=== PATIENT | male | born 1950 | race Caucasian/White ===

== ENCOUNTER 2019-01-20 15:28 | Inpatient (IN) | payer MEDICARE, OTHER ==
[~2019-01-20] VITALS: Ht 157.5 cm; Wt 56.5 kg
--- NOTE | 2019-01-20 17:16 | ERD ---
ER Documentation Chief Complaint Chief Complaint weakness, vomiting 2 days HPI The patient is a 68-year-old male, presenting to the ER because of vomiting for the last 2 days, generalized weakness. He has not been taking his insulin for the last 4 days, denies fever, chills, neck pain, chest pain, dyspnea, abdominal pain, diarrhea, constipation, dysuria. He does not smoke nor drink Past medical history: Diabetes mellitus Past surgical history: None ROS All systems reviewed and are negative except as per history of present illness. Medications Home Meds Reported Medications Gabapentin* (Gabapentin*) 100 Mg Capsule, 100 MG PO DAILY, #90 CAP 01/20/19 Lisinopril* (Lisinopril*) 10 Mg Tablet, 10 MG PO DAILY, #30 TAB 01/20/19 Glipizide* (Glipizide*) 5 Mg Tablet, 5 MG PO AC BREAKFAST DINNER, TAB 01/20/19 Metformin Hcl* (Metformin Hcl*) 1,000 Mg Tablet, 1000 MG PO WITH BREAKFAST DINNE, #60 TAB 01/20/19 Insulin Human Nph (Novolin-N) 100 Units/Ml Susp, 15 UNITS SQ BID 01/20/19 Allergies Allergies: Coded Allergies: No Known Allergy (Unverified , 01/20/19) PMhx/Soc History of Surgery: No Anesthesia Reaction: No Hx Neurological Disorder: No Hx Respiratory Disorders: No Hx Cardiac Disorders: Yes (HTN) Hx Psychiatric Problems: No Hx Miscellaneous Medical Probl: Yes (DM) Hx Alcohol Use: No Hx Substance Use: No Hx Tobacco Use: No Physical Exam Vitals Vital Signs Date Temp Pulse Resp B/P (MAP) Pulse Ox O2 O2 Flow FiO2 Time Delivery Rate 01/20/19 98.2 124 18 109/58 98 Room Air 18:18 (75) 01/20/19 98.2 113 18 109/58 98 15:48 (75) Physical Exam Const: No acute distress. Head: Atraumatic. Eyes: Normal Conjunctiva. ENT: Normal External Ears, Nose and Mouth. Neck: Full range of motion. No meningismus. Resp: Clear to auscultation bilaterally. Tachypneic Cardio: Regular tachycardic Abd: Soft, non distended, normal bowel sounds, non tender. Skin: No petechiae or rashes. Back: No midline or flank tenderness. Ext: No cyanosis, or edema. Neur: Awake and alert. No focal deficit Psych: Normal Mood and Affect. Result Diagram: 01/20/19 1747 01/20/192039 Results 24 hrs Laboratory Tests Test 01/20/19 15:47 01/20/19 17:15 01/20/19 17:27 01/20/19 17:47 Bedside Glucose 586 mg/dL > 595 mg/dL Blood Gas Blood venous Specimen Source Arterial Blood 01/20/2019 5:46:5 Date Drawn 5 PM Arterial Blood OTHER Gas Puncture Site Naresh Test N/A Venous Blood pH 7.246 Venous Blood 25.8 mmHG pCO2 (Temp Corrected) Venous Blood pO2 72.5 mmHG (Temp Corrected) Venous Blood 11.0 mmol/L HCO3 Venous Blood 93.0 mmHG Oxygen Saturation Venous Blood -14.4 mmol/L Base Excess Venous Blood 16.4 g/dl Total Hemoglobin Venous Blood 91.8 % Oxyhemoglobin Venous Blood 0.3 % Methemoglobin Blood Gas A-a O2 46.3 mmHg Differential Carboxyhemoglobi 1.0 % n Blood Gas 37.0 C Temperature Blood Gas ROOM AIR Modality FiO2 21.0 % Blood Gas ABILSKY R.N. Critical Value Read Back Blood Gas MDA Notified Whom Blood Gas 01/20/2019 5:52:5 Notified Time 9 PM White Blood 14.1 10^3/ul Count Red Blood Count 4.96 10^6/ul Hemoglobin 15.2 g/dl Hematocrit 43.9 % Mean Corpuscular 88.5 fl Volume Mean Corpuscular 30.6 pg Hemoglobin Mean Corpuscular 34.6 g/dl Hemoglobin Doreen nt Red Cell 11.6 % Distribution Width Platelet Count 294 10^3/UL Mean Platelet 10.6 fl Volume Immature 0.400 % Granulocytes % Neutrophils % 92.7 % Lymphocytes % 4.1 % Monocytes % 2.6 % Eosinophils % 0.0 % Basophils % 0.2 % Nucleated Red 0.0 /100WBC Blood Cells % Immature 0.060 10^3/ul Granulocytes # Neutrophils # 13.0 10^3/ul Lymphocytes # 0.6 10^3/ul Monocytes # 0.4 10^3/ul Eosinophils # 0.0 10^3/ul Basophils # 0.0 10^3/ul Nucleated Red 0.0 10^3/ul Blood Cells # Sodium Level 136 mmol/L Potassium Level 6.0 mmol/L Chloride Level 90 mmol/L Carbon Dioxide 10 mmol/L Level Anion Gap 36 Blood Urea 39 mg/dl Nitrogen Creatinine 1.39 mg/dl Est Glomerular 51 mL/min Filtrat Rate mL/min Glucose Level 757 mg/dl Hemoglobin A1c 10.0 % Calcium Level 9.7 mg/dl Phosphorus Level 6.6 mg/dl Magnesium Level 2.5 mg/dl Current Medications Medications Dose Sig/Ritu Start Time Status Last (Trade) Ordered Route PRN Stop Time Admin Dose Reason Admin Sodium 560 ml @ ONCE ONCE 01/20/19 DC 01/20/19 Chloride 560 mls/hr IV 17:30 18:08 01/20/19 18:29 Ondansetron 4 mg ONCE STAT 01/20/19 DC 01/20/19 HCl (Zofran IV 17:36 18:09 Inj) 01/20/19 17:37 Potassium 1,000 ml @ Q0M IV 01/20/19 Chloride/Sodi 0 mls/hr 19:00 um Chloride Potassium 1,000 ml @ Q0M IV 01/20/19 Chloride/Dext 0 mls/hr 19:00 jamie/ Sod Cl Potassium 1,000 ml @ Q0M IV 01/20/19 Chloride/Sodi 0 mls/hr 19:00 um Chloride Potassium 1,000 ml @ Q0M IV 01/20/19 Chloride/Dext 0 mls/hr 19:00 jamie/ Sod Cl Sodium 1,000 ml @ Q0M IV 01/20/19 01/20/19 Chloride 0 mls/hr 19:00 21:23 1,000 ml @ Q0M IV 01/20/19 Dextrose/Sodi 0 mls/hr 19:00 um Chloride Insulin 101 ml @ ER DKA 01/20/19 01/20/19 Human 5.65 mls/hr PROTOCOL IV 19:00 21:28 Regular 100 unit/ Sodium Chloride Lactated 560 ml @ ONCE ONCE 01/20/19 DC 01/20/19 Ringer's 560 mls/hr IV 19:00 19:40 01/20/19 19:59 HYPOGLYCEM 01/20/19 Miscellaneous HYPOGLYCEMIA PROTOCOL PRN 19:00 TREATMENT XX Information .HYPOGLYCEMIA (* PROTOCOL Miscellaneous Pharmacy Order) Dextrose 50 ml Q15M PRN 01/20/19 (D50w IV 19:00 Syringe) .DECREASED GLUCOSE Dextrose 25 ml Q15M PRN 01/20/19 (D50w IV 19:00 Syringe) .DECREASED GLUCOSE Procedures/MDM [place] [id number] Radiology Main Line: [phone] DIAGNOSTIC IMAGING REPORT Patient: SHARI BLACKWELL : 1950 Age: 68 Sex: M MR #: [id number] DOS: 01/20/19 190 Ordering MD: GILBERT MCCLOUD MD Location: E/R Room/Bed: PROCEDURE: XR Chest. CLINICAL INDICATION: Cough TECHNIQUE: Single frontal chest x-ray. COMPARISON: None. FINDINGS: The lungs are clear. No focal opacification is seen. Mildly diminished lung volumes with mild compressive changes. The cardiomediastinal silhouette is unremarkable. Aortic atherosclerotic vascular calcifications. The osseous structures are notable for degenerative enthesopathy of the lower thoracic spine. IMPRESSION: 1. No acute cardiopulmonary process. 2. Scattered benign chronic senescent changes. RPTAT: PP .Edinson Brown MD, MD Date Time Electronically viewed and signed by .Edinson Brown MD, MD on 01/20/2019 20:11 .B/ CC: GILBERT MCCLOUD MD [phone] EKG: Read by emergency physician Rate/Rhythm: Sinus tachycardia 114 beats/min QRS, ST, T-waves: No ST elevation, nonspecific T abnormality Impression: Abnormal EKG MEDICAL MAKING DECISION: The patient is a 68-year-old male, presenting with acute mild DKA, acute kidney injury, acute dehydration, acute hyperphosphatemia, acute hyperkalemia, acute leukocytosis. He was treated with DKA protocol, blood culture urine culture were obtained, he was treated empirically with Rocephin 1 g IV due to acute leukocytosis, Zofran 4 mg IV for nausea The differential diagnoses considered include but are not limited to medical noncompliance, dehydration, HHS, UTI, pneumonia Critical Care: Time: 35 minutes excluding all billable procedures. Treatments/Evaluations: Close monitoring and treatment of unstable vital signs, cardiorespiratory, and neurologic status, while maintaining tight balance of fluid, respiratory, and cardiac interventions. Departure Diagnosis: Primary Impression: DKA (diabetic ketoacidoses) Additional Impressions: CARI (acute kidney injury) Hyperkalemia Dehydration Leukocytosis Hyperphosphatemia Condition: Critical Comments I discussed the findings with the patient. I discussed the patient with Dr Maciel at 7:10 PM , who was made aware of the lab, the treatment, the patient condition. The patient is admitted to ICU Disclaimer: Inadvertent spelling and grammatical errors are likely due to EHR/dictation software use and do not reflect on the overall quality of patient care. Also, please note that the electronic time recorded on this note does not necessarily reflect the actual time of the patient encounter. GILBERT MCCLOUD MD Jan 20, 2019 17:16
[2019-01-20] MEDS ORDERED: SOD CHLORIDE 0.9% 560 ML IV ONE (17:30)
[2019-01-20] MEDS ORDERED: ONDANSETRON 4 MG INJ IV STA (17:36)
[2019-01-20] MEDS ORDERED: METF100010 PO (17:53)
[2019-01-20] MEDS ORDERED: NPH SQ (17:53)
[2019-01-20] MEDS ORDERED: GLIP5TAB13 PO (17:54)
[2019-01-20] MEDS ORDERED: LISI10TA2 PO (17:54)
[2019-01-20] MEDS ORDERED: GABA100C14 PO (17:55)
[2019-01-20] MEDS ORDERED: NS + KCL 40 MEQ 1,000 ML IV SCH (19:00)
[2019-01-20] MEDS ORDERED: LACTATED RINGER S IV ONE (19:00)
[2019-01-20] MEDS ORDERED: D10/0.45% NACL + KCL 40 MEQ 1,000 ML IV SCH (19:00)
[2019-01-20] MEDS ORDERED: D10/0.45% NACL + KCL 30 MEQ 1,000 ML IV SCH (19:00)
[2019-01-20] MEDS ORDERED: DEXTROSE 10%/0.45% NACL 1,000 ML IV SCH (19:00)
[2019-01-20] MEDS ORDERED: DEXTROSE 50% 50 ML SYRINGE IV PRN ×2 (19:00)
[2019-01-20] MEDS ORDERED: CEFTRIAXONE 1 GM/50 ML (PMX) 50 ML IVPB ONE (19:30)
--- NOTE | 2019-01-20 19:45 | HP ---
Date/Time of Note Date/Time of Note DATE: 01/20/19 TIME: 19:45 Assessment/Plan VTE Prophylaxis SCD applied (from Nsg): Yes Pharmacological prophylaxis: NA/contraindicated Pharm contraindication: low risk/ambulating Lines/Catheters IV Catheter Type (from Nrsg): Saline Lock Assessment/Plan Hospital Course This is a 68-year-old male being admitted to the ICU floor for: #1 DKA: Secondary to medication noncompliance/lack of insulin. Patient reports that he did not have his insulin for 4 days due to unable to get it refilled. Continue DKA protocol that was initiated in the ED. Serial labs and ABGs. Insulin GGT. hemoglobin A1c is 10. We will need to titrate patient's home insulin once patient has out of DKA. He takes NPH 15 units twice daily which we are currently holding an oral meds which were currently holding. #2 diabetes mellitus: Hemoglobin A1c of 10. Will need to titrate patient's home insulin regimen. Resume lisinopril once patient's kidney function stabilizes. endocrine consultation. #3 CARI: Likely secondary to dehydration, DKA, OWEN inhibitor effect. Will hydrate the patient. Monitor renal function. Avoid NSAIDs. Resume OWEN inhibitor once patient's kidney function stabilizes. #4 DVT GI prophylaxis: SCDs, H2 roberto Further treatment strategy will be implemented as per the clinical course. Greater than 35 minutes critical care time spent on the care management this patient. Result Diagram: 01/20/19 1747 01/20/19 1747 Results 24hrs Laboratory Tests Test 01/20/19 15:47 01/20/19 17:15 01/20/19 17:27 01/20/19 17:47 Bedside Glucose 586 *H > 595 *H Blood Gas Blood venous Specimen Source Arterial Blood 01/20/2019 5:46: Date Drawn 55 PM Arterial Blood OTHER Gas Puncture Site Naresh Test N/A Venous Blood pH 7.246 L Venous Blood 25.8 L pCO2 (Temp Corrected) Venous Blood pO2 72.5 H (Temp Corrected) Venous Blood 11.0 L HCO3 Venous Blood 93.0 H Oxygen Saturation Venous Blood -14.4 L Base Excess Venous Blood 16.4 Total Hemoglobin Venous Blood 91.8 Oxyhemoglobin Venous Blood 0.3 Methemoglobin Blood Gas A-a O2 46.3 Differential Carboxyhemoglobi 1.0 n Blood Gas 37.0 Temperature Blood Gas ROOM AIR Modality FiO2 21.0 Blood Gas STEVE [place].Jorgito Critical Value Read Back Blood Gas MDA Notified Whom Blood Gas 01/20/2019 5:52: Notified Time 59 PM White Blood 14.1 #H Count Red Blood Count 4.96 Hemoglobin 15.2 Hematocrit 43.9 Mean Corpuscular 88.5 Volume Mean Corpuscular 30.6 Hemoglobin Mean Corpuscular 34.6 Hemoglobin Doreen nt Red Cell 11.6 Distribution Width Platelet Count 294 # Mean Platelet 10.6 H Volume Immature 0.400 Granulocytes % Neutrophils % 92.7 H Lymphocytes % 4.1 L Monocytes % 2.6 Eosinophils % 0.0 Basophils % 0.2 Nucleated Red 0.0 Blood Cells % Immature 0.060 H Granulocytes # Neutrophils # 13.0 H Lymphocytes # 0.6 L Monocytes # 0.4 Eosinophils # 0.0 Basophils # 0.0 Nucleated Red 0.0 Blood Cells # Sodium Level 136 Potassium Level 6.0 H Chloride Level 90 L Carbon Dioxide 10 L Level Anion Gap 36 H Blood Urea 39 H Nitrogen Creatinine 1.39 H Est Glomerular 51 L Filtrat Rate mL/min Glucose Level 757 *H Calcium Level 9.7 Phosphorus Level 6.6 H Magnesium Level 2.5 Test 01/20/19 19:44 Bedside Urine pH 5.0 (LAB) Bedside Urine Negative Protein (LAB) Bedside Urine 0.50% H Glucose (UA) Bedside Urine 4+ H Ketones (LAB) Bedside Urine Trace-intact H Blood Bedside Urine Negative Nitrite (LAB) Bedside Urine Negative Leukocyte Estera se (L HPI/ROS Admit Date/Time Admit Date/Time Hx of Present Illness Chief complaint: Elevated blood sugars, vomiting This is a 68-year-old male who presented to the emergency department as he noticed "high "blood sugars for the last 4 days and had vomiting x2 days. Patient reports that he also had been feeling weak. He ran out of his insulin approximately 4 days ago and was unable to get any refills as his doctor was out of town. He denies any chest pain or cough or fevers or dysuria. Allergies: NKDA Medications: Gabapentin Glipizide NPH 15 units subcu twice daily Lisinopril Metformin ROS Const: As per HPI Eyes : No pain discharge or redness or change in visual acuity ENT: No pain, sore throat, congestion, congestion, dysphagia or discharge Respiratory: No shortness of breath, cough, sputum, wheezing, or pleuritic pain Cardiovascular: No chest pain, palpitation, PND, or edema GI : As per HPI Genitourinary: No dysuria, hematuria, flank pain , discharge or CVA tenderness Musculoskeletal: No joint pain, back pain, neck pain, restricted range of motion in neck or joints Skin: No rash, bruising or hives Neuro: No headache, dizziness, syncope, seizure, focal weakness Endocrine: As per HPI Psych: No hallucination, depression, anxiety or suicidal ideation PMH/Family/Social Past Medical History Diabetes mellitus Medications Current Medications Potassium Chloride/Sodium Chloride 1,000 ml @ 0 mls/hr Q0M IV ; Start 01/20/19 at 19:00 Potassium Chloride/Dextrose/ Sod Cl 1,000 ml @ 0 mls/hr Q0M IV ; Start 01/20/19 at 19:00 Potassium Chloride/Sodium Chloride 1,000 ml @ 0 mls/hr Q0M IV ; Start 01/20/19 at 19:00 Potassium Chloride/Dextrose/ Sod Cl 1,000 ml @ 0 mls/hr Q0M IV ; Start 01/20/19 at 19:00 Sodium Chloride 1,000 ml @ 0 mls/hr Q0M IV ; Start 01/20/19 at 19:00 Dextrose/Sodium Chloride 1,000 ml @ 0 mls/hr Q0M IV ; Start 01/20/19 at 19:00 Insulin Human Regular 100 unit/ Sodium Chloride 101 ml @ 5.65 mls/hr ER DKA PROTOCOL IV ; Start 01/20/19 at 19:00 Lactated Ringer's 560 ml @ 560 mls/hr ONCE ONCE IV ; Start 01/20/19 at 19:00; Stop 01/20/19 at 19:59 Miscellaneous Information (* Miscellaneous Pharmacy Order) HYPOGLYCEMIA TREATMENT HYPOGLYCEM PROTOCOL PRN XX .HYPOGLYCEMIA PROTOCOL; Start 01/20/19 at 19:00 Dextrose (D50w Syringe) 50 ml Q15M PRN IV .DECREASED GLUCOSE; Start 01/20/19 at 19:00 Dextrose (D50w Syringe) 25 ml Q15M PRN IV .DECREASED GLUCOSE; Start 01/20/19 at 19:00 Ceftriaxone Sodium 50 ml @ 100 mls/hr ONCE ONCE IVPB ; Start 01/20/19 at 19:30; Stop 01/20/19 at 19:59 Ondansetron HCl (Zofran Inj) 4 mg Q6H PRN IV NAUSEA AND/OR VOMITING; Start 01/20/19 at 20:00; Status UNV Albuterol (Proventil 0.083% (Neb)) 2.5 mg Q2H RESP THERAPY PRN NEB SHORTNESS OF BREATH; Start 01/20/19 at 20:00; Status UNV Coded Allergies: No Known Allergy (Unverified , 01/20/19) Past Surgical History Hernia repair Family History Significant Family History: no pertinent family hx Social History Alcohol Use: none Smoking Status: Never smoker Drug Use: none Exam/Review of Systems Vital Signs Vitals Vital Signs Date Temp Pulse Resp B/P (MAP) Pulse Ox O2 O2 Flow FiO2 Time Delivery Rate 01/20/19 98.2 124 18 109/58 98 Room Air 18:18 (75) Exam Exam General: Patient is a pleasant male currently lying in bed in no acute distress HEENT: Atraumatic, normocephalic. The pupils are equal, round and reactive. Extraocular motor are intact, dry mucous membranes Neck: Supple with full range of motion. No rigidity or meningismus Chest: Nontender Lungs: Clear to auscultation bilaterally no crackles rales or wheezing Heart: Normal S1-S2, Regular rhythm and rate. No murmur, S3, or S4 Abdomen: Soft , nontender, nondistended , bowel sounds are present. No guarding no rebound tenderness , No masses or organomegaly. No costovertebral temporal angle mass Extremities: Normal to inspection, no edema no cyanosis Neurologic: Normal mental status, speech normal, cranial nerves II through XII are intact, motor and sensory are intact, no focal weakness Additional Comments PROCEDURE: XR Chest. CLINICAL INDICATION: Cough TECHNIQUE: Single frontal chest x-ray. COMPARISON: None. FINDINGS: The lungs are clear. No focal opacification is seen. Mildly diminished lung volumes with mild compressive changes. The cardiomediastinal silhouette is unremarkable. Aortic atherosclerotic vascular calcifications. The osseous structures are notable for degenerative enthesopathy of the lower thoracic spine. IMPRESSION: 1. No acute cardiopulmonary process. 2. Scattered benign chronic senescent changes. RPTAT: PP .Edinson Brown MD, Date Time Electronically viewed and signed by .Edinson Brown MD, on 01/20/2019 20:11 .B/ CC: GILBERT MCCLOUD MD [id number] EKG: Sinus tachycardia 114 bpm, no ST or T wave normalities concerning for acute ischemia MARTHA PULIDO Jan 20, 2019 19:45
[2019-01-20] MEDS ORDERED: DOCUSATE SODIUM 100 MG CAP PO PRN (20:00)
[2019-01-20] MEDS ORDERED: ACETAMINOPHEN 650MG/20.3ML CUP PO PRN (20:00)
[2019-01-20] MEDS ORDERED: IPRATROPIUM (NEB) 0.5 MG/2.5 ML AMP NEB PRN (20:00)
[2019-01-20] MEDS ORDERED: BISACODYL (EC) 5 MG TAB PO PRN (20:00)
[2019-01-20] MEDS ORDERED: HYDROCODONE/APAP (5/325) TAB PO PRN (20:00)
[2019-01-20] MEDS ORDERED: morphine 2 MG INJ IV PRN (20:00)
[2019-01-20] MEDS ORDERED: ALBUTEROL 0.083% (NEB) 2.5 MG/3 ML AMP NEB PRN (20:00)
[2019-01-20 21:05] VITALS: BP 130/94; PULSE 126; RESP 26
[2019-01-20] MEDS: SOD CHLORIDE 0.9% 1,000 ML IV SCH (21:23)
[2019-01-20] MEDS: INSULIN REGULAR, HUMAN 100 UNIT in SOD CHLORIDE 0.9% 100 ML IV SCH ×2 (21:28)
[2019-01-20] MEDS: FAMOTIDINE 20 MG INJ IV SCH (21:37)
[2019-01-20] MEDS: ONDANSETRON 4 MG INJ IV PRN (21:37)
[2019-01-20] MEDS: HEPARIN 5,000 UNIT/1 ML VIAL SC SCH (21:40)
[2019-01-20 22:00] VITALS: BP 105/68; PULSE 114; RESP 21
[2019-01-20 22:24] VITALS: Ht 157.5 cm; Wt 56.5 kg
[2019-01-20 23:00] VITALS: BP 125/70; PULSE 110; RESP 16
[2019-01-21] VITALS (25 sets, daily range): BP systolic 110–153; BP diastolic 59–96; PULSE 70–109; RESP 11–23
[2019-01-21] MEDS: NS + KCL 30 MEQ 1,000 ML IV SCH ×2 (00:22→04:21)
[2019-01-21] MEDS: HEPARIN 5,000 UNIT/1 ML VIAL SC SCH ×3 (06:11→21:31)
[2019-01-21] MEDS: FAMOTIDINE 20 MG INJ IV SCH (08:45)
[2019-01-21] MEDS: SOD CHLORIDE 0.9% 1,000 ML IV SCH (08:45)
--- NOTE | 2019-01-21 08:53 | PN ---
Date/Time of Note Date/Time of Note DATE: 01/21/19 TIME: 08:45 Assessment/Plan VTE Prophylaxis Risk score (from Ns)>0 risk: 2 SCD applied (from [facility]): No SCD contraindicated: other Pharmacological prophylaxis: heparin Lines/Catheters IV Catheter Type (from [facility]): Peripheral IV Urinary Cath still in place: No Assessment/Plan Hospital Course S: Patient had no acute events overnight, anion gap is closed and bicarb levels are normal this morning based on the basic metabolic panel. O: VS - see below PE: Gen: Lying in bed, no acute distress Head: Atraumatic. Eyes: Normal Conjunctiva. ENT: Normal External Ears, Nose and Mouth. Neck: Full range of motion. No meningismus. Resp: Clear to auscultation bilaterally. Tachypneic Cardio: S1, S2 heard Abd: Soft, non distended, normal bowel sounds, non tender. Ext: No bilateral lower extremity edema. Neur: Awake and alert. No focal deficit A/P: 68-year-old male being admitted for: #1 DKA: Resolving now, occurred likely secondary to medication nonco mpliance/lack of insulin. Patient reports that he did not have his insulin for 4 days due to unable to get it refilled. -Based on the numbers today, will switch to subcu insulins and wean off insu monique drip, A1c is 10.0. -Continue IV fluids, replete electrolytes as needed -Consider family living educator and/or endocrinology consult #2 diabetes mellitus: Again, hemoglobin A1c of 10. -See above, resume lisinopril once patient's kidney function stabilizes, again endocrine consultation. #3 CARI: Resolving now, likely secondary to dehydration, DKA, OWEN inhibitor effect. -Continue IV fluids, monitor renal function. Avoid NSAIDs. - Resume OWEN inhibitor once patient's kidney function stabilizes. #4 DVT GI prophylaxis: SCDs, H2 roberto Further treatment strategy will be implemented as per the clinical course. 45 minutes critical care time spent on the care management this patient. Result Diagram: 01/21/19 0254 01/21/19 0657 Results 24hrs Laboratory Tests Test 01/20/19 15:47 01/20/19 17:15 01/20/19 17:27 01/20/19 17:47 Bedside Glucose 586 *H > 595 *H Blood Gas Blood venous Specimen Source Arterial Blood 01/20/2019 5:46: Date Drawn 55 PM Arterial Blood OTHER Gas Puncture Site Naresh Test N/A Venous Blood pH 7.246 L Venous Blood 25.8 L pCO2 (Temp Corrected) Venous Blood pO2 72.5 H (Temp Corrected) Venous Blood 11.0 L HCO3 Venous Blood 93.0 H Oxygen Saturation Venous Blood -14.4 L Base Excess Venous Blood 16.4 Total Hemoglobin Venous Blood 91.8 Oxyhemoglobin Venous Blood 0.3 Methemoglobin Blood Gas A-a O2 46.3 Differential Carboxyhemoglobi 1.0 n Blood Gas 37.0 Temperature Blood Gas ROOM AIR Modality FiO2 21.0 Blood Gas ABILSKY R.N. Critical Value Read Back Blood Gas MDA Notified Whom Blood Gas 01/20/2019 5:52: Notified Time 59 PM White Blood 14.1 #H Count Red Blood Count 4.96 Hemoglobin 15.2 Hematocrit 43.9 Mean Corpuscular 88.5 Volume Mean Corpuscular 30.6 Hemoglobin Mean Corpuscular 34.6 Hemoglobin Doreen nt Red Cell 11.6 Distribution Width Platelet Count 294 # Mean Platelet 10.6 H Volume Immature 0.400 Granulocytes % Neutrophils % 92.7 H Lymphocytes % 4.1 L Monocytes % 2.6 Eosinophils % 0.0 Basophils % 0.2 Nucleated Red 0.0 Blood Cells % Immature 0.060 H Granulocytes # Neutrophils # 13.0 H Lymphocytes # 0.6 L Monocytes # 0.4 Eosinophils # 0.0 Basophils # 0.0 Nucleated Red 0.0 Blood Cells # Sodium Level 136 Potassium Level 6.0 H Chloride Level 90 L Carbon Dioxide 10 L Level Anion Gap 36 H Blood Urea 39 H Nitrogen Creatinine 1.39 H Est Glomerular 51 L Filtrat Rate mL/min Glucose Level 757 *H Hemoglobin A1c 10.0 H Calcium Level 9.7 Phosphorus Level 6.6 H Magnesium Level 2.5 Test 01/20/19 19:33 01/20/19 19:44 01/20/19 20:25 01/20/19 20:40 Urine Color STRAW Urine Clarity CLEAR Urine pH 5.0 Urine Specific 1.022 [place] Urine Ketones 2+ H Urine Nitrite NEGATIVE Urine Bilirubin NEGATIVE Urine NEGATIVE Urobilinogen Urine Leukocyte NEGATIVE Esterase Urine Hemoglobin NEGATIVE Urine Glucose 3+ H Urine Total NEGATIVE Protein Bedside Urine pH 5.0 (LAB) Bedside Urine Negative Protein (LAB) Bedside Urine 0.50% H Glucose (UA) Bedside Urine 4+ H Ketones (LAB) Bedside Urine Trace-intact H Blood Bedside Urine Negative Nitrite (LAB) Bedside Urine Negative Leukocyte Estera se (L Bedside Glucose > 595 *H Sodium Level 140 Potassium Level 6.1 *H Chloride Level 96 L Carbon Dioxide 10 L Level Anion Gap 34 H Blood Urea 38 H Nitrogen Creatinine 1.20 Est Glomerular > 60 Filtrat Rate mL/min Glucose Level 646 *H Calcium Level 9.2 Phosphorus Level 5.5 H Magnesium Level 2.4 Test 01/20/19 21:00 01/20/19 21:10 01/20/19 21:59 01/20/19 23:00 Blood Gas Blood venous Specimen Source Arterial Blood 01/20/2019 9:25: Date Drawn 49 PM Arterial Blood VENOUS LINE Gas Puncture Site Naresh Test N/A Venous Blood pH 7.233 L Venous Blood 25.0 L pCO2 (Temp Corrected) Venous Blood pO2 64.2 H (Temp Corrected) Venous Blood 10.3 L HCO3 Venous Blood 89.0 H Oxygen Saturation Venous Blood -15.3 L Base Excess Venous Blood 15.2 Total Hemoglobin Venous Blood 88.6 Oxyhemoglobin Venous Blood 0.3 Methemoglobin Carboxyhemoglobi 0.1 n Blood Gas 37.0 Temperature Blood Gas ROOM AIR Modality FiO2 21.0 Blood Gas MR Notified Whom Blood Gas 01/20/2019 9:32: Notified Time 15 PM Bedside Glucose 578 *H 567 *H 432 *H Test 01/20/19 23:25 01/21/19 00:14 01/21/19 01:06 01/21/19 02:10 Sodium Level 142 Potassium Level 4.4 Chloride Level 104 Carbon Dioxide 13 L Level Anion Gap 25 #H Blood Urea 35 H Nitrogen Creatinine 1.12 Est Glomerular > 60 Filtrat Rate mL/min Glucose Level 480 #*H Calcium Level 9.5 Phosphorus Level 3.4 # Magnesium Level 2.5 Bedside Glucose 448 *H 338 H 303 H Test 01/21/19 02:54 01/21/19 03:07 01/21/19 04:05 01/21/19 05:03 White Blood 12.9 H Count Red Blood Count 4.54 L Hemoglobin 13.8 L Hematocrit 39.0 L Mean Corpuscular 85.9 Volume Mean Corpuscular 30.4 Hemoglobin Mean Corpuscular 35.4 Hemoglobin Doreen nt Red Cell 11.8 Distribution Width Platelet Count 259 Mean Platelet 10.3 Volume Immature 0.500 H Granulocytes % Neutrophils % 80.5 H Lymphocytes % 9.3 L Monocytes % 9.5 Eosinophils % 0.0 Basophils % 0.2 Nucleated Red 0.0 Blood Cells % Immature 0.060 H Granulocytes # Neutrophils # 10.4 H Lymphocytes # 1.2 Monocytes # 1.2 H Eosinophils # 0.0 Basophils # 0.0 Nucleated Red 0.0 Blood Cells # Sodium Level 147 H Potassium Level 4.9 Chloride Level 112 H Carbon Dioxide 22 Level Anion Gap 13 # Blood Urea 33 H Nitrogen Creatinine 0.86 Est Glomerular > 60 Filtrat Rate mL/min Glucose Level 283 #H Calcium Level 9.2 Phosphorus Level 1.4 #L Magnesium Level 2.5 Triglycerides 127 Level Cholesterol 229 H Level LDL Cholesterol, 160 Calculated HDL Cholesterol 44 Cholesterol/HDL 5.2 Ratio Thyroid 0.776 Stimulating Hormone (TSH) Bedside Glucose 269 H 197 191 Test 01/21/19 06:08 01/21/19 06:57 01/21/19 06:59 01/21/19 08:20 Bedside Glucose 219 232 H 273 H Sodium Level 147 H Potassium Level 4.5 Chloride Level 115 H Carbon Dioxide 25 Level Anion Gap 7 Blood Urea 29 H Nitrogen Creatinine 0.76 Est Glomerular > 60 Filtrat Rate mL/min Glucose Level 275 H Calcium Level 9.1 Phosphorus Level 0.9 L Magnesium Level 2.4 Exam/Review of Systems Exam Vitals Vital Signs Date Temp Pulse Resp B/P (MAP) Pulse Ox O2 O2 Flow FiO2 Time Delivery Rate 01/21/19 96 21 126/81 97 Room Air 06:00 (96) 01/21/19 98.5 04:00 Intake and Output 01/20/19 01/20/19 01/21/19 1515:00 23:00 07:00 IntakeIntake Total 561.2 ml 2094.8 ml OutputOutput Total 600 ml 500 ml BalanceBalance -38.8 ml 1594.8 ml Results Results 24hrs Laboratory Tests Test 01/20/19 15:47 01/20/19 17:15 01/20/19 17:27 01/20/19 17:47 Bedside Glucose 586 *H > 595 *H Blood Gas Blood venous Specimen Source Arterial Blood 01/20/2019 5:46: Date Drawn 55 PM Arterial Blood OTHER Gas Puncture Site Naresh Test N/A Venous Blood pH 7.246 L Venous Blood 25.8 L pCO2 (Temp Corrected) Venous Blood pO2 72.5 H (Temp Corrected) Venous Blood 11.0 L HCO3 Venous Blood 93.0 H Oxygen Saturation Venous Blood -14.4 L Base Excess Venous Blood 16.4 Total Hemoglobin Venous Blood 91.8 Oxyhemoglobin Venous Blood 0.3 Methemoglobin Blood Gas A-a O2 46.3 Differential Carboxyhemoglobi 1.0 n Blood Gas 37.0 Temperature Blood Gas ROOM AIR Modality FiO2 21.0 Blood Gas ABILSKY R.N. Critical Value Read Back Blood Gas MDA Notified Whom Blood Gas 01/20/2019 5:52: Notified Time 59 PM White Blood 14.1 #H Count Red Blood Count 4.96 Hemoglobin 15.2 Hematocrit 43.9 Mean Corpuscular 88.5 Volume Mean Corpuscular 30.6 Hemoglobin Mean Corpuscular 34.6 Hemoglobin Doreen nt Red Cell 11.6 Distribution Width Platelet Count 294 # Mean Platelet 10.6 H Volume Immature 0.400 Granulocytes % Neutrophils % 92.7 H Lymphocytes % 4.1 L Monocytes % 2.6 Eosinophils % 0.0 Basophils % 0.2 Nucleated Red 0.0 Blood Cells % Immature 0.060 H Granulocytes # Neutrophils # 13.0 H Lymphocytes # 0.6 L Monocytes # 0.4 Eosinophils # 0.0 Basophils # 0.0 Nucleated Red 0.0 Blood Cells # Sodium Level 136 Potassium Level 6.0 H Chloride Level 90 L Carbon Dioxide 10 L Level Anion Gap 36 H Blood Urea 39 H Nitrogen Creatinine 1.39 H Est Glomerular 51 L Filtrat Rate mL/min Glucose Level 757 *H Hemoglobin A1c 10.0 H Calcium Level 9.7 Phosphorus Level 6.6 H Magnesium Level 2.5 Test 01/20/19 19:33 01/20/19 19:44 01/20/19 20:25 01/20/19 20:40 Urine Color STRAW Urine Clarity CLEAR Urine pH 5.0 Urine Specific 1.022 [place] Urine Ketones 2+ H Urine Nitrite NEGATIVE Urine Bilirubin NEGATIVE Urine NEGATIVE Urobilinogen Urine Leukocyte NEGATIVE Esterase Urine Hemoglobin NEGATIVE Urine Glucose 3+ H Urine Total NEGATIVE Protein Bedside Urine pH 5.0 (LAB) Bedside Urine Negative Protein (LAB) Bedside Urine 0.50% H Glucose (UA) Bedside Urine 4+ H Ketones (LAB) Bedside Urine Trace-intact H Blood Bedside Urine Negative Nitrite (LAB) Bedside Urine Negative Leukocyte Estera se (L Bedside Glucose > 595 *H Sodium Level 140 Potassium Level 6.1 *H Chloride Level 96 L Carbon Dioxide 10 L Level Anion Gap 34 H Blood Urea 38 H Nitrogen Creatinine 1.20 Est Glomerular > 60 Filtrat Rate mL/min Glucose Level 646 *H Calcium Level 9.2 Phosphorus Level 5.5 H Magnesium Level 2.4 Test 01/20/19 21:00 01/20/19 21:10 01/20/19 21:59 01/20/19 23:00 Blood Gas Blood venous Specimen Source Arterial Blood 01/20/2019 9:25: Date Drawn 49 PM Arterial Blood VENOUS LINE Gas Puncture Site Naresh Test N/A Venous Blood pH 7.233 L Venous Blood 25.0 L pCO2 (Temp Corrected) Venous Blood pO2 64.2 H (Temp Corrected) Venous Blood 10.3 L HCO3 Venous Blood 89.0 H Oxygen Saturation Venous Blood -15.3 L Base Excess Venous Blood 15.2 Total Hemoglobin Venous Blood 88.6 Oxyhemoglobin Venous Blood 0.3 Methemoglobin Carboxyhemoglobi 0.1 n Blood Gas 37.0 Temperature Blood Gas ROOM AIR Modality FiO2 21.0 Blood Gas MR Notified Whom Blood Gas 01/20/2019 9:32: Notified Time 15 PM Bedside Glucose 578 *H 567 *H 432 *H Test 01/20/19 23:25 01/21/19 00:14 01/21/19 01:06 01/21/19 02:10 Sodium Level 142 Potassium Level 4.4 Chloride Level 104 Carbon Dioxide 13 L Level Anion Gap 25 #H Blood Urea 35 H Nitrogen Creatinine 1.12 Est Glomerular > 60 Filtrat Rate mL/min Glucose Level 480 #*H Calcium Level 9.5 Phosphorus Level 3.4 # Magnesium Level 2.5 Bedside Glucose 448 *H 338 H 303 H Test 01/21/19 02:54 01/21/19 03:07 01/21/19 04:05 01/21/19 05:03 White Blood 12.9 H Count Red Blood Count 4.54 L Hemoglobin 13.8 L Hematocrit 39.0 L Mean Corpuscular 85.9 Volume Mean Corpuscular 30.4 Hemoglobin Mean Corpuscular 35.4 Hemoglobin Doreen nt Red Cell 11.8 Distribution Width Platelet Count 259 Mean Platelet 10.3 Volume Immature 0.500 H Granulocytes % Neutrophils % 80.5 H Lymphocytes % 9.3 L Monocytes % 9.5 Eosinophils % 0.0 Basophils % 0.2 Nucleated Red 0.0 Blood Cells % Immature 0.060 H Granulocytes # Neutrophils # 10.4 H Lymphocytes # 1.2 Monocytes # 1.2 H Eosinophils # 0.0 Basophils # 0.0 Nucleated Red 0.0 Blood Cells # Sodium Level 147 H Potassium Level 4.9 Chloride Level 112 H Carbon Dioxide 22 Level Anion Gap 13 # Blood Urea 33 H Nitrogen Creatinine 0.86 Est Glomerular > 60 Filtrat Rate mL/min Glucose Level 283 #H Calcium Level 9.2 Phosphorus Level 1.4 #L Magnesium Level 2.5 Triglycerides 127 Level Cholesterol 229 H Level LDL Cholesterol, 160 Calculated HDL Cholesterol 44 Cholesterol/HDL 5.2 Ratio Thyroid 0.776 Stimulating Hormone (TSH) Bedside Glucose 269 H 197 191 Test 01/21/19 06:08 01/21/19 06:57 01/21/19 06:59 01/21/19 08:20 Bedside Glucose 219 232 H 273 H Sodium Level 147 H Potassium Level 4.5 Chloride Level 115 H Carbon Dioxide 25 Level Anion Gap 7 Blood Urea 29 H Nitrogen Creatinine 0.76 Est Glomerular > 60 Filtrat Rate mL/min Glucose Level 275 H Calcium Level 9.1 Phosphorus Level 0.9 L Magnesium Level 2.4 Medications Medication Current Medications Potassium Chloride/Sodium Chloride 1,000 ml @ 0 mls/hr Q0M IV ; Start 01/20/19 at 19:00 Potassium Chloride/Dextrose/ Sod Cl 1,000 ml @ 0 mls/hr Q0M IV ; Start 01/20/19 at 19:00 Potassium Chloride/Sodium Chloride 1,000 ml @ 0 mls/hr Q0M IV Last administered on 01/21/19at 04:21; Admin Dose 250 MLS/HR; Start 01/20/19 at 19:00 Potassium Chloride/Dextrose/ Sod Cl 1,000 ml @ 0 mls/hr Q0M IV ; Start 01/20/19 at 19:00 Sodium Chloride 1,000 ml @ 0 mls/hr Q0M IV Last administered on 01/20/19at 21:23; Admin Dose 250 MLS/HR; Start 01/20/19 at 19:00 Dextrose/Sodium Chloride 1,000 ml @ 0 mls/hr Q0M IV Last administered on 01/21/19at 05:14; Admin Dose 250 MLS/HR; Start 01/20/19 at 19:00 Insulin Human Regular 100 unit/ Sodium Chloride 101 ml @ 5.65 mls/hr ER DKA PROTOCOL IV Last administered on 01/20/19at 21:28; Admin Dose 5.6 MLS/HR; Start 01/20/19 at 19:00 Miscellaneous Information (* Miscellaneous Pharmacy Order) HYPOGLYCEMIA TREATMENT HYPOGLYCEM PROTOCOL PRN XX .HYPOGLYCEMIA PROTOCOL; Start 01/20/19 at 19:00 Dextrose (D50w Syringe) 50 ml Q15M PRN IV .DECREASED GLUCOSE; Start 01/20/19 at 19:00 Dextrose (D50w Syringe) 25 ml Q15M PRN IV .DECREASED GLUCOSE; Start 01/20/19 at 19:00 Ondansetron HCl (Zofran Inj) 4 mg Q6H PRN IV NAUSEA AND/OR VOMITING Last administered on 01/20/19at 21:37; Admin Dose 4 MG; Start 01/20/19 at 20:00 Albuterol (Proventil 0.083% (Neb)) 2.5 mg Q2H RESP THERAPY PRN NEB SHORTNESS OF BREATH; Start 01/20/19 at 20:00 Ipratropium [place] (Atrovent 0.02% (Neb)) 0.5 mg Q2H RESP THERAPY PRN NEB SHORTNESS OF BREATH; Start 01/20/19 at 20:00 Acetaminophen (Tylenol Liquid) 650 mg Q6H PRN PO PAIN LEVEL 1-3 OR FEVER; Start 01/20/19 at 20:00 Acetaminophen/ Hydrocodone Bitart (Sabael (5/325)) 1 tab Q6H PRN PO PAIN LEVEL 4-6; Start 01/20/19 at 20:00 Morphine Sulfate (morphine) 2 mg Q4H PRN IV PAIN LEVEL 7-10; Start 01/20/19 at 20:00 Docusate Sodium (Colace) 100 mg Q12H PRN PO CONSTIPATION; Start 01/20/19 at 20:00 Bisacodyl (Dulcolax) 5 mg DAILY PRN PO CONSTIPATION; Start 01/20/19 at 20:00 Famotidine (Pepcid Iv) 20 mg DAILY IV Last administered on 01/20/19at 21:37; A dmin Dose 20 MG; Start 01/20/19 at 21:00 Heparin Sodium (Porcine) (Heparin (5000 Units/1ml)) 5,000 unit Q8 SC Last administered on 01/21/19at 06:11; Admin Dose 5,000 UNIT; Start 01/20/19 at 22:00 FANTA BRODERICK Jan 21, 2019 08:53
[2019-01-21] MEDS ORDERED: SOD CHLORIDE 0.45% 1,000 ML IV SCH (09:00)
[2019-01-21] MEDS ORDERED: INSULIN GLARGINE [LANTus] (100 UNITS/ML) SYG SC SCH (10:00)
[2019-01-21] MEDS: [UNRECOGNIZED DRUG - REMARK] XX SCH ×2 (11:00→19:00)
[2019-01-21] MEDS: INSULIN REGULAR, HUMAN 100 UNIT in SOD CHLORIDE 0.9% 100 ML IV SCH ×2 (12:24)
[2019-01-21] MEDS: INSULIN ASPART [NOVOLOG] 3 ML PEN SC SCH ×5 (12:32→21:00)
[2019-01-21] MEDS: SOD CHLORIDE 0.45% 1,000 ML IV SCH ×3 (12:57→22:36)
--- NOTE | 2019-01-21 13:24 | CONS ---
Assessment/Plan Assessment/Plan Problems: (1) DKA (diabetic ketoacidoses) Status: Acute Comment: We will try and determine whether or not there is much pancreatic beta cell function. If the patient has fairly limited beta cell function metformin may not be the perfect choice although it certainly the least expensive choice. Another way of doing this would be the usage of pioglitazone in combination with some of the other medications. The Novolin NPH that he is using his the least expensive and therefore something of the convenient for his budgets. Please note it but it was not a significant straight constraint that would be using glargine insulin with rapid acting insulin at meals Qualifiers: Qualified Codes: E11.10 - Type 2 diabetes mellitus with ketoacidosis without coma (2) CARI (acute kidney injury) Status: Resolved Comment: Resolving with appropriate hydration. (3) Hypertension Status: Chronic Comment: Resume OWEN inhibitor in the morning Qualifiers: Qualified Codes: I10 - Essential (primary) hypertension (4) Hyperlipidemia Status: Chronic Comment: Check cholesterol panel in the morning, continue statin therapy Qualifiers: Qualified Codes: E78.00 - Pure hypercholesterolemia, unspecified (5) H/O umbilical hernia repair Onset Date: ~ 01/2004 Status: Chronic Comment: Noted. Consultation Date/Type/Reason Admit Date/Time January 20, 2019 Date of Consultation: Jan 21, 2019 Type of Consult Endocrine Reason for Consultation 20-year history of diabetes presenting with DKA while on both insulin and oral agents; hypertension on OWEN inhibitor; hyperlipidemia on statin Requesting Provider: FANTA BRODERICK Date/Time of Note DATE: 01/21/19 TIME: 13:17 Hx of Present Illness 68-year-old [place] gentleman with a 20-year history of diabetes. He is on combination oral agents using metformin, secretagogue with twice a day NPH insulin. Although patient is not specifically aware of complications he is under treatment for diabetic peripheral neuropathy. He developed 5 days of GI symptoms with nausea and vomiting which still are going on and pain on swallowing. He developed DKA and was brought into the hospital. 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 with possible complication of peripheral neuropathy), high cholesterol, hypertension Home Meds Reported Medications Gabapentin* (Gabapentin*) 100 Mg Capsule, 100 MG PO DAILY, #90 CAP 01/20/19 Lisinopril* (Lisinopril*) 10 Mg Tablet, 10 MG PO DAILY, #30 TAB 01/20/19 Glipizide* (Glipizide*) 5 Mg Tablet, 5 MG PO AC BREAKFAST DINNER, TAB 01/20/19 Metformin Hcl* (Metformin Hcl*) 1,000 Mg Tablet, 1000 MG PO WITH BREAKFAST DINNE, #60 TAB 01/20/19 Insulin Human Nph (Novolin-N) 100 Units/Ml Susp, 15 UNITS SQ BID 01/20/19 Medications Current Medications Potassium Chloride/Dextrose/ Sod Cl 1,000 ml @ 0 mls/hr Q0M IV ; Start 01/20/19 at 19:00 Potassium Chloride/Dextrose/ Sod Cl 1,000 ml @ 0 mls/hr Q0M IV Last administered on 01/21/19at 10:01; Admin Dose 200 MLS/HR; Start 01/20/19 at 19:00 Sodium Chloride 1,000 ml @ 0 mls/hr Q0M IV Last administered on 01/21/19at 08:45; Admin Dose 50 MLS/HR; Start 01/20/19 at 19:00 Dextrose/Sodium Chloride 1,000 ml @ 0 mls/hr Q0M IV Last administered on 01/21/19at 05:14; Admin Dose 250 MLS/HR; Start 01/20/19 at 19:00 Insulin Human Regular 100 unit/ Sodium Chloride 101 ml @ 5.65 mls/hr ER DKA PROTOCOL IV Last administered on 01/21/19at 12:24; Admin Dose 5.65 MLS/HR; Start 01/20/19 at 19:00 Miscellaneous Information (* Miscellaneous Pharmacy Order) HYPOGLYCEMIA TREATMENT HYPOGLYCEM PROTOCOL PRN XX .HYPOGLYCEMIA PROTOCOL; Start 01/20/19 at 19:00 Dextrose (D50w Syringe) 50 ml Q15M PRN IV .DECREASED GLUCOSE; Start 01/20/19 at 19:00 Dextrose (D50w Syringe) 25 ml Q15M PRN IV .DECREASED GLUCOSE; Start 01/20/19 at 19:00 Ondansetron HCl (Zofran Inj) 4 mg Q6H PRN IV NAUSEA AND/OR VOMITING Last administered on 01/20/19at 21:37; Admin Dose 4 MG; Start 01/20/19 at 20:00 Albuterol (Proventil 0.083% (Neb)) 2.5 mg Q2H RESP THERAPY PRN NEB SHORTNESS OF BREATH; Start 01/20/19 at 20:00 Ipratropium Magn[place] (Atrovent 0.02% (Neb)) 0.5 mg Q2H RESP THERAPY PRN NEB SHORTNESS OF BREATH; Start 01/20/19 at 20:00 Acetaminophen (Tylenol Liquid) 650 mg Q6H PRN PO PAIN LEVEL 1-3 OR FEVER; Start 01/20/19 at 20:00 Acetaminophen/ Hydrocodone Bitart ([place] (5/325)) 1 tab Q6H PRN PO PAIN LEVEL 4-6; Start 01/20/19 at 20:00 Morphine Sulfate (morphine) 2 mg Q4H PRN IV PAIN LEVEL 7-10; Start 01/20/19 at 20:00 Docusate Sodium (Colace) 100 mg Q12H PRN PO CONSTIPATION; Start 01/20/19 at 20:00 Bisacodyl (Dulcolax) 5 mg DAILY PRN PO CONSTIPATION; Start 01/20/19 at 20:00 Famotidine (Pepcid Iv) 20 mg DAILY IV Last administered on 01/21/19at 08:45; Admin Dose 20 MG; Start 01/20/19 at 21:00 Heparin Sodium (Porcine) (Heparin (5000 Units/1ml)) 5,000 unit Q8 SC Last administered on 01/21/19at 06:11; Admin Dose 5,000 UNIT; Start 01/20/19 at 22:00 Diagnostic Test (Pha) (Accu-Chek) 1 ea 02 XX ; Start 01/22/19 at 02:00 Insulin Aspart (Novolog Insulin Pen) 4 unit WITH MEALS SC Last administered on 01/21/19at 12:32; Admin Dose 4 UNIT; Start 01/21/19 at 11:30 Insulin Aspart (Novolog Insulin Pen) NOVOLOG *MILD* ALGORITHM WITH MEALS BEDTIME SC Last administered on 01/21/19at 12:33; Admin Dose 3 UNIT; Start 01/21/19 at 11:30 Insulin Glargine (Lantus) 11 units DAILY@0800 SC Last administered on 01/21/19at 09:39; Admin Dose 11 UNITS; Start 01/21/19 at 10:00 Sodium Chloride 1,000 ml @ 150 mls/hr Q6H40M IV Last administered on 01/21/19at 12:57; Admin Dose 150 MLS/HR; Start 01/21/19 at 13:00 Miscellaneous Information (*Order Clarification Bulletin) MEDICATION REQUIRES CLARIFICATI... Q8H XX ; Start 01/21/19 at 11:00 Insulin Human NPH (Humulin N) 15 unit BID@08,20 SC ; Start 01/21/19 at 20:00; Status UNV Allergies: Coded Allergies: No Known Allergy (Unverified , 01/20/19) Past Surgical History Past Surgical Hx: other (Status post umbilical hernia repair) Family History Significant Family History: diabetes, hypertension Social History Born [facility] and raised. Alcohol Use: none Smoking Status: Never smoker Drug Use: none Exam/Review of Systems Exam Vitals Vital Signs Date Temp Pulse Resp B/P (MAP) Pulse Ox O2 O2 Flow FiO2 Time Delivery Rate 01/21/19 87 08:00 01/21/19 21 126/81 97 Room Air 06:00 (96) 01/21/19 98.5 04:00 Intake and Output 01/20/19 01/20/19 01/21/19 1515:00 23:00 07:00 IntakeIntake Total 561.2 ml 2094.8 ml OutputOutput Total 600 ml 500 ml BalanceBalance -38.8 ml 1594.8 ml Constitutional: alert, oriented Head: normocephalic, atraumatic Respiratory: clear to auscultation, normal air movement Cardiovascular: regular rate and rhythm, nl pulses Gastrointestinal: soft, nl liver, spleen, non-tender Extremities: normal pulses Results Result Diagram: 01/21/19 0254 01/21/19 0657 Results 24hrs Laboratory Tests Test 01/20/19 15:47 01/20/19 17:15 01/20/19 17:27 01/20/19 17:47 Bedside Glucose 586 *H > 595 *H Blood Gas Blood venous Specimen Source Arterial Blood 01/20/2019 5:46: Date Drawn 55 PM Arterial Blood OTHER Gas Puncture Site Naresh Test N/A Venous Blood pH 7.246 L Venous Blood 25.8 L pCO2 (Temp Corrected) Venous Blood pO2 72.5 H (Temp Corrected) Venous Blood 11.0 L HCO3 Venous Blood 93.0 H Oxygen Saturation Venous Blood -14.4 L Base Excess Venous Blood 16.4 Total Hemoglobin Venous Blood 91.8 Oxyhemoglobin Venous Blood 0.3 Methemoglobin Blood Gas A-a O2 46.3 Differential Carboxyhemoglobi 1.0 n Blood Gas 37.0 Temperature Blood Gas ROOM AIR Modality FiO2 21.0 Blood Gas STEVE R.N. Critical Value Read Back Blood Gas MDA Notified Whom Blood Gas 01/20/2019 5:52: Notified Time 59 PM White Blood 14.1 #H Count Red Blood Count 4.96 Hemoglobin 15.2 Hematocrit 43.9 Mean Corpuscular 88.5 Volume Mean Corpuscular 30.6 Hemoglobin Mean Corpuscular 34.6 Hemoglobin Doreen nt Red Cell 11.6 Distribution Width Platelet Count 294 # Mean Platelet 10.6 H Volume Immature 0.400 Granulocytes % Neutrophils % 92.7 H Lymphocytes % 4.1 L Monocytes % 2.6 Eosinophils % 0.0 Basophils % 0.2 Nucleated Red 0.0 Blood Cells % Immature 0.060 H Granulocytes # Neutrophils # 13.0 H Lymphocytes # 0.6 L Monocytes # 0.4 Eosinophils # 0.0 Basophils # 0.0 Nucleated Red 0.0 Blood Cells # Sodium Level 136 Potassium Level 6.0 H Chloride Level 90 L Carbon Dioxide 10 L Level Anion Gap 36 H Blood Urea 39 H Nitrogen Creatinine 1.39 H Est Glomerular 51 L Filtrat Rate mL/min Glucose Level 757 *H Hemoglobin A1c 10.0 H Calcium Level 9.7 Phosphorus Level 6.6 H Magnesium Level 2.5 Test 01/20/19 19:33 01/20/19 19:44 01/20/19 20:25 01/20/19 20:40 Urine Color STRAW Urine Clarity CLEAR Urine pH 5.0 Urine Specific 1.022 [place] Urine Ketones 2+ H Urine Nitrite NEGATIVE Urine Bilirubin NEGATIVE Urine NEGATIVE Urobilinogen Urine Leukocyte NEGATIVE Esterase Urine Hemoglobin NEGATIVE Urine Glucose 3+ H Urine Total NEGATIVE Protein Bedside Urine pH 5.0 (LAB) Bedside Urine Negative Protein (LAB) Bedside Urine 0.50% H Glucose (UA) Bedside Urine 4+ H Ketones (LAB) Bedside Urine Trace-intact H Blood Bedside Urine Negative Nitrite (LAB) Bedside Urine Negative Leukocyte Estera se (L Bedside Glucose > 595 *H Sodium Level 140 Potassium Level 6.1 *H Chloride Level 96 L Carbon Dioxide 10 L Level Anion Gap 34 H Blood Urea 38 H Nitrogen Creatinine 1.20 Est Glomerular > 60 Filtrat Rate mL/min Glucose Level 646 *H Calcium Level 9.2 Phosphorus Level 5.5 H Magnesium Level 2.4 Test 01/20/19 21:00 01/20/19 21:10 01/20/19 21:59 01/20/19 23:00 Blood Gas Blood venous Specimen Source Arterial Blood 01/20/2019 9:25: Date Drawn 49 PM Arterial Blood VENOUS LINE Gas Puncture Site Naresh Test N/A Venous Blood pH 7.233 L Venous Blood 25.0 L pCO2 (Temp Corrected) Venous Blood pO2 64.2 H (Temp Corrected) Venous Blood 10.3 L HCO3 Venous Blood 89.0 H Oxygen Saturation Venous Blood -15.3 L Base Excess Venous Blood 15.2 Total Hemoglobin Venous Blood 88.6 Oxyhemoglobin Venous Blood 0.3 Methemoglobin Carboxyhemoglobi 0.1 n Blood Gas 37.0 Temperature Blood Gas ROOM AIR Modality FiO2 21.0 Blood Gas MR Notified Whom Blood Gas 01/20/2019 9:32: Notified Time 15 PM Bedside Glucose 578 *H 567 *H 432 *H Test 01/20/19 23:25 01/21/19 00:14 01/21/19 01:06 01/21/19 02:10 Sodium Level 142 Potassium Level 4.4 Chloride Level 104 Carbon Dioxide 13 L Level Anion Gap 25 #H Blood Urea 35 H Nitrogen Creatinine 1.12 Est Glomerular > 60 Filtrat Rate mL/min Glucose Level 480 #*H Calcium Level 9.5 Phosphorus Level 3.4 # Magnesium Level 2.5 Bedside Glucose 448 *H 338 H 303 H Test 01/21/19 02:49 01/21/19 02:54 01/21/19 03:07 01/21/19 04:05 Hepatitis B Pending Surface Antigen Hepatitis B Core Pending Total Antibody Hepatitis C Pending Antibody White Blood 12.9 H Count Red Blood Count 4.54 L Hemoglobin 13.8 L Hematocrit 39.0 L Mean Corpuscular 85.9 Volume Mean Corpuscular 30.4 Hemoglobin Mean Corpuscular 35.4 Hemoglobin Doreen nt Red Cell 11.8 Distribution Width Platelet Count 259 Mean Platelet 10.3 Volume Immature 0.500 H Granulocytes % Neutrophils % 80.5 H Lymphocytes % 9.3 L Monocytes % 9.5 Eosinophils % 0.0 Basophils % 0.2 Nucleated Red 0.0 Blood Cells % Immature 0.060 H Granulocytes # Neutrophils # 10.4 H Lymphocytes # 1.2 Monocytes # 1.2 H Eosinophils # 0.0 Basophils # 0.0 Nucleated Red 0.0 Blood Cells # Sodium Level 147 H Potassium Level 4.9 Chloride Level 112 H Carbon Dioxide 22 Level Anion Gap 13 # Blood Urea 33 H Nitrogen Creatinine 0.86 Est Glomerular > 60 Filtrat Rate mL/min Glucose Level 283 #H Calcium Level 9.2 Phosphorus Level 1.4 #L Magnesium Level 2.5 Triglycerides 127 Level Cholesterol 229 H Level LDL Cholesterol, 160 Calculated HDL Cholesterol 44 Cholesterol/HDL 5.2 Ratio Thyroid 0.776 Stimulating Hormone (TSH) Bedside Glucose 269 H 197 Test 01/21/19 05:03 01/21/19 06:08 01/21/19 06:57 01/21/19 06:59 Bedside Glucose 191 219 232 H Sodium Level 147 H Potassium Level 4.5 Chloride Level 115 H Carbon Dioxide 25 Level Anion Gap 7 Blood Urea 29 H Nitrogen Creatinine 0.76 Est Glomerular > 60 Filtrat Rate mL/min Glucose Level 275 H Calcium Level 9.1 Phosphorus Level 0.9 L Magnesium Level 2.4 Test 01/21/19 08:20 01/21/19 08:56 01/21/19 09:59 01/21/19 10:00 Bedside Glucose 273 H 262 H 254 H Urine Color YELLOW Urine Clarity CLEAR Urine pH 5.0 Urine Specific 1.024 [place] Urine Ketones 2+ H Urine Nitrite NEGATIVE Urine Bilirubin NEGATIVE Urine NEGATIVE Urobilinogen Urine Leukocyte NEGATIVE Esterase Urine Hemoglobin NEGATIVE Urine Glucose 3+ H Urine Total NEGATIVE Protein Test 01/21/19 11:07 01/21/19 12:27 Bedside Glucose 271 H 239 H Medications Medication Current Medications Potassium Chloride/Dextrose/ Sod Cl 1,000 ml @ 0 mls/hr Q0M IV ; Start 01/20/19 at 19:00 Potassium Chloride/Dextrose/ Sod Cl 1,000 ml @ 0 mls/hr Q0M IV Last administered on 01/21/19at 10:01; Admin Dose 200 MLS/HR; Start 01/20/19 at 19:00 Sodium Chloride 1,000 ml @ 0 mls/hr Q0M IV Last administered on 01/21/19at 08:45; Admin Dose 50 MLS/HR; Start 01/20/19 at 19:00 Dextrose/Sodium Chloride 1,000 ml @ 0 mls/hr Q0M IV Last administered on 01/21/19at 05:14; Admin Dose 250 MLS/HR; Start 01/20/19 at 19:00 Insulin Human Regular 100 unit/ Sodium Chloride 101 ml @ 5.65 mls/hr ER DKA PROTOCOL IV Last administered on 01/21/19at 12:24; Admin Dose 5.65 MLS/HR; Start 01/20/19 at 19:00 Miscellaneous Information (* Miscellaneous Pharmacy Order) HYPOGLYCEMIA TREATMENT HYPOGLYCEM PROTOCOL PRN XX .HYPOGLYCEMIA PROTOCOL; Start 01/20/19 at 19:00 Dextrose (D50w Syringe) 50 ml Q15M PRN IV .DECREASED GLUCOSE; Start 01/20/19 at 19:00 Dextrose (D50w Syringe) 25 ml Q15M PRN IV .DECREASED GLUCOSE; Start 01/20/19 at 19:00 Ondansetron HCl (Zofran Inj) 4 mg Q6H PRN IV NAUSEA AND/OR VOMITING Last administered on 01/20/19at 21:37; Admin Dose 4 MG; Start 01/20/19 at 20:00 Albuterol (Proventil 0.083% (Neb)) 2.5 mg Q2H RESP THERAPY PRN NEB SHORTNESS OF BREATH; Start 01/20/19 at 20:00 Ipratropium Magn[place] (Atrovent 0.02% (Neb)) 0.5 mg Q2H RESP THERAPY PRN NEB SHORTNESS OF BREATH; Start 01/20/19 at 20:00 Acetaminophen (Tylenol Liquid) 650 mg Q6H PRN PO PAIN LEVEL 1-3 OR FEVER; Start 01/20/19 at 20:00 Acetaminophen/ Hydrocodone Bitart ([place] (5/325)) 1 tab Q6H PRN PO PAIN LEVEL 4-6; Start 01/20/19 at 20:00 Morphine Sulfate (morphine) 2 mg Q4H PRN IV PAIN LEVEL 7-10; Start 01/20/19 at 20:00 Docusate Sodium (Colace) 100 mg Q12H PRN PO CONSTIPATION; Start 01/20/19 at 20:00 Bisacodyl (Dulcolax) 5 mg DAILY PRN PO CONSTIPATION; Start 01/20/19 at 20:00 Famotidine (Pepcid Iv) 20 mg DAILY IV Last administered on 01/21/19at 08:45; Admin Dose 20 MG; Start 01/20/19 at 21:00 Heparin Sodium (Porcine) (Heparin (5000 Units/1ml)) 5,000 unit Q8 SC Last administered on 01/21/19 06:11; Admin Dose 5,000 UNIT; Start 01/20/19 at 22:00 Diagnostic Test (Pha) (Accu-Chek) 1 ea 02 XX ; Start 01/22/19 at 02:00 Insulin Aspart (Novolog Insulin Pen) 4 unit WITH MEALS SC Last administered on 01/21/19 12:32; Admin Dose 4 UNIT; Start 01/21/19 at 11:30 Insulin Aspart (Novolog Insulin Pen) NOVOLOG *MILD* ALGORITHM WITH MEALS BEDTIME SC Last administered on 01/21/19 12:33; Admin Dose 3 UNIT; Start 01/21/19 at 11:30 Insulin Glargine (Lantus) 11 units DAILY@0800 SC Last administered on 01/21/19 09:39; Admin Dose 11 UNITS; Start 01/21/19 at 10:00 Sodium Chloride 1,000 ml @ 150 mls/hr Q6H40M IV Last administered on 01/21/19at 12:57; Admin Dose 150 MLS/HR; Start 01/21/19 at 13:00 Miscellaneous Information (*Order Clarification Bulletin) MEDICATION REQUIRES CLARIFICATI... Q8H XX ; Start 01/21/19 at 11:00 Insulin Human NPH (Humulin N) 15 unit BID@08,20 SC ; Start 01/21/19 at 20:00; Status DUANE MELENDREZ MD Jan 21, 2019 13:24
[2019-01-21] MEDS ORDERED: ACCU-CHEK XX SCH (13:30)
[2019-01-21] MEDS: PIOGLITAZONE 30 MG TAB PO SCH ×2 (13:30→16:52)
[2019-01-21] MEDS: ACCU-CHEK XX SCH ×5 (14:57→21:23)
[2019-01-21] MEDS: NPH, HUMAN INSULIN ISOPHANE 3ML VIAL SC SCH (19:57)
[2019-01-21] MEDS: ONDANSETRON 4 MG INJ IV PRN (21:21)
[2019-01-22 02:00] VITALS: BP 129/60; PULSE 78; RESP 18
[2019-01-22] MEDS: ACCU-CHEK XX SCH ×11 (02:17→21:00)
[2019-01-22] MEDS: [UNRECOGNIZED DRUG - REMARK] XX SCH ×3 (02:17→19:00)
[2019-01-22] MEDS: SOD CHLORIDE 0.45% 1,000 ML IV SCH ×4 (05:44→22:12)
[2019-01-22] MEDS: HEPARIN 5,000 UNIT/1 ML VIAL SC SCH ×3 (05:47→21:51)
[2019-01-22 07:47] VITALS: BP 127/74; PULSE 63; RESP 18
[2019-01-22] MEDS ORDERED: INSULIN GLARGINE [LANTus] (100 UNITS/ML) SYG SC SCH (08:00)
[2019-01-22] MEDS: INSULIN ASPART [NOVOLOG] 3 ML PEN SC SCH ×7 (08:00→21:00)
[2019-01-22] MEDS: FAMOTIDINE 20 MG INJ IV SCH (08:32)
[2019-01-22] MEDS: NPH, HUMAN INSULIN ISOPHANE 3ML VIAL SC SCH ×2 (08:40→21:46)
[2019-01-22] MEDS: PIOGLITAZONE 15 MG TAB PO SCH (10:17)
--- NOTE | 2019-01-22 11:15 | PN ---
Date/Time of Note Date/Time of Note DATE: 01/22/19 TIME: 11:09 Assessment/Plan VTE Prophylaxis Risk score (from Ns)>0 risk: 2 SCD applied (from [facility] [place]): No SCD contraindicated: other Pharmacological prophylaxis: heparin Lines/Catheters IV Catheter Type (from [facility]): Peripheral IV Urinary Cath still in place: No Assessment/Plan Hospital Course Assessment and plan 1. DKA. Appears largely resolved at present. Continue on insulin regimen. [facility] is following. It was reported that patient did not have his insulin for 4 days prior to admission. Medical compliance advised. Patient was seen by clinical systems educator. Continue to monitor. 2. Diabetes. A1c of 10. Continue insulin regimen. Monitor glucose trend. 3. Acute kidney injury. Likely from dehydration. Improved at present. Encourage oral fluid intake 4. Dysphagia. Etiology unknown. Will get speech therapy evaluation. Disposition and plan. Will get ST evaluation for reported dysphagia. Follow-up with environmental health physician recommendations. Discussed POC with Dr. White Result Diagram: 01/22/19 0555 01/21/19 0657 Results 24hrs Laboratory Tests Test 01/21/19 12:27 01/21/19 14:57 01/21/19 16:46 01/21/19 19:53 Bedside Glucose 239 H 132 376 H 77 Test 01/21/19 21:22 01/22/19 02:13 01/22/19 05:55 01/22/19 08:17 Bedside Glucose 94 112 113 White Blood Count 10.5 Red Blood Count 4.20 L Hemoglobin 13.0 L Hematocrit 37.1 L Mean Corpuscular 88.3 Volume Mean Corpuscular 31.0 Hemoglobin Mean Corpuscular 35.0 Hemoglobin Concent Red Cell 11.8 Distribution Width Platelet Count 198 # Mean Platelet Volume 10.3 Immature 0.400 Granulocytes % Neutrophils % 76.3 Lymphocytes % 13.4 L Monocytes % 9.5 Eosinophils % 0.1 Basophils % 0.3 Nucleated Red Blood 0.0 Cells % Immature 0.040 H Granulocytes # Neutrophils # 8.0 H Lymphocytes # 1.4 Monocytes # 1.0 H Eosinophils # 0.0 Basophils # 0.0 Nucleated Red Blood 0.0 Cells # Triglycerides Level 138 Cholesterol Level 169 # LDL Cholesterol, 100 Calculated HDL Cholesterol 41 Cholesterol/HDL 4.1 Ratio Test 01/22/19 10:15 Bedside Glucose 102 Subjective 24 Hr Interval Summary Free Text/Dictation reports difficulty with swallowing Exam/Review of Systems Exam Vitals Vital Signs Date Temp Pulse Resp B/P (MAP) Pulse Ox O2 O2 Flow FiO2 Time Delivery Rate 01/22/19 99.0 63 18 127/74 98 Room Air 07:47 (91) Intake and Output 01/21/19 01/21/19 01/22/19 1515:00 23:00 07:00 IntakeIntake Total 1270 ml 1330 ml 1000 ml OutputOutput Total 600 ml 700 ml 400 ml BalanceBalance 670 ml 630 ml 600 ml Constitutional: alert, oriented Psych: nl mood/affect Head: normocephalic Neck: supple, non-tender Respiratory: clear to auscultation Cardiovascular: regular rate and rhythm Gastrointestinal: soft, non-tender Neurological: CLEANER GREASER II-XII intact, nl mental status, nl speech Skin: nl turgor Results Results 24hrs Laboratory Tests Test 01/21/19 12:27 01/21/19 14:57 01/21/19 16:46 01/21/19 19:53 Bedside Glucose 239 H 132 376 H 77 Test 01/21/19 21:22 01/22/19 02:13 01/22/19 05:55 01/22/19 08:17 Bedside Glucose 94 112 113 White Blood Count 10.5 Red Blood Count 4.20 L Hemoglobin 13.0 L Hematocrit 37.1 L Mean Corpuscular 88.3 Volume Mean Corpuscular 31.0 Hemoglobin Mean Corpuscular 35.0 Hemoglobin Concent Red Cell 11.8 Distribution Width Platelet Count 198 # Mean Platelet Volume 10.3 Immature 0.400 Granulocytes % Neutrophils % 76.3 Lymphocytes % 13.4 L Monocytes % 9.5 Eosinophils % 0.1 Basophils % 0.3 Nucleated Red Blood 0.0 Cells % Immature 0.040 H Granulocytes # Neutrophils # 8.0 H Lymphocytes # 1.4 Monocytes # 1.0 H Eosinophils # 0.0 Basophils # 0.0 Nucleated Red Blood 0.0 Cells # Triglycerides Level 138 Cholesterol Level 169 # LDL Cholesterol, 100 Calculated HDL Cholesterol 41 Cholesterol/HDL 4.1 Ratio Test 01/22/19 10:15 Bedside Glucose 102 Medications Medication Current Medications Potassium Chloride/Dextrose/ Sod Cl 1,000 ml @ 0 mls/hr Q0M IV ; Start 01/20/19 at 19:00 Potassium Chloride/Dextrose/ Sod Cl 1,000 ml @ 0 mls/hr Q0M IV Last administered on 01/21/19at 10:01; Admin Dose 200 MLS/HR; Start 01/20/19 at 19:00 Sodium Chloride 1,000 ml @ 0 mls/hr Q0M IV Last administered on 01/21/19at 08:45; Admin Dose 50 MLS/HR; Start 01/20/19 at 19:00 Dextrose/Sodium Chloride 1,000 ml @ 0 mls/hr Q0M IV Last administered on 01/21/19at 05:14; Admin Dose 250 MLS/HR; Start 01/20/19 at 19:00 Dextrose (D50w Syringe) 50 ml Q15M PRN IV .DECREASED GLUCOSE; Start 01/20/19 at 19:00 Dextrose (D50w Syringe) 25 ml Q15M PRN IV .DECREASED GLUCOSE; Start 01/20/19 at 19:00 Ondansetron HCl (Zofran Inj) 4 mg Q6H PRN IV NAUSEA AND/OR VOMITING Last administered on 01/21/19at 21:21; Admin Dose 4 MG; Start 01/20/19 at 20:00 Albuterol (Proventil 0.083% (Neb)) 2.5 mg Q2H RESP THERAPY PRN NEB SHORTNESS OF BREATH; Start 01/20/19 at 20:00 Ipratropium [place] (Atrovent 0.02% (Neb)) 0.5 mg Q2H RESP THERAPY PRN NEB SHORTNESS OF BREATH; Start 01/20/19 at 20:00 Acetaminophen (Tylenol Liquid) 650 mg Q6H PRN PO PAIN LEVEL 1-3 OR FEVER; Start 01/20/19 at 20:00 Acetaminophen/ Hydrocodone Bitart ([place] (5/325)) 1 tab Q6H PRN PO PAIN LEVEL 4-6; Start 01/20/19 at 20:00 Morphine Sulfate (morphine) 2 mg Q4H PRN IV PAIN LEVEL 7-10; Start 01/20/19 at 20:00 Docusate Sodium (Colace) 100 mg Q12H PRN PO CONSTIPATION; Start 01/20/19 at 20:00 Bisacodyl (Dulcolax) 5 mg DAILY PRN PO CONSTIPATION; Start 01/20/19 at 20:00 Famotidine (Pepcid Iv) 20 mg DAILY IV Last administered on 01/22/19 08:32; Admin Dose 20 MG; Start 01/20/19 at 21:00 Heparin Sodium (Porcine) (Heparin (5000 Units/1ml)) 5,000 unit Q8 SC Last administered on 01/22/19 05:47; Admin Dose 5,000 UNIT; Start 01/20/19 at 22:00 Diagnostic Test (Pha) (Accu-Chek) 1 ea 02 XX Last administered on 01/22/19 02:17; Admin Dose 1 EA; Start 01/22/19 at 02:00 Insulin Aspart (Novolog Insulin Pen) 4 unit WITH MEALS SC Last administered on 01/22/19 08:41; Admin Dose 4 UNIT; Start 01/21/19 at 11:30 Insulin Aspart (Novolog Insulin Pen) NOVOLOG *MILD* ALGORITHM WITH MEALS BEDTIME SC Last administered on 01/21/19 16:54; Admin Dose 7 UNIT; Start at 11:30 Sodium Chloride 1,000 ml @ 150 mls/hr Q6H40M IV Last administered on 01/22/19 05:44; Admin Dose 150 MLS/HR; Start 01/21/19 at 13:00 Miscellaneous Information (*Order Clarification Bulletin) MEDICATION REQUIRES CLARIFICATI... Q8H XX ; Start 01/21/19 at 11:00 Insulin Human NPH (Humulin N) 15 unit BID@08,20 SC Last administered on 01/22/19 08:40; Admin Dose 15 UNIT; Start 01/21/19 at 20:00 Diagnostic Test (Pha) (Accu-Chek) 1 ea AC MEALS XX Last administered on 01/22/19 07:00; Admin Dose 1 EA; Start 01/21/19 at 17:05 Diagnostic Test (Pha) (Accu-Chek) 1 ea AC MEALS AND BEDTIME XX Last administered on 01/22/19 07:00; Admin Dose 1 EA; Start 01/21/19 at 17:05 Diagnostic Test (Pha) (Accu-Chek) 1 ea 2 HOURS AFTER MEALS XX Last administered on 01/22/19 10:16; Admin Dose 1 EA; Start 01/21/19 at 14:30 Pioglitazone HCl (Actos) 30 mg DAILY PO Last administered on 6/20/19at 10:17; Admin Dose 30 MG; Start 01/22/19 at 09:00 SOLEDAD LIU NP Jan 22, 2019 11:15
[2019-01-22 14:15] VITALS: BP 117/64; PULSE 75; RESP 18
--- NOTE | 2019-01-22 18:42 | CONS ---
Assessment/Plan Assessment/Plan Problems: (1) DKA (diabetic ketoacidoses) Status: Acute Comment: The DKA is resolved. His blood sugar control is come to the line nicely. Now the question is what set this off. I am concerned about his biliary tree. Qualifiers: Diabetes mellitus type: type 2 Diabetes mellitus complication detail: without coma Qualified Codes: E11.10 - Type 2 diabetes mellitus with ketoacidosis without coma Consultation Date/Type/Reason Admit Date/Time Jan 20, 2019 at 19:19 Initial Consult Date 01/21/19 Type of Consult Endocrine Reason for Consultation Patient is feeling much better although is still having GI tract and esophageal symptoms. Please note his lipase is negative, see the rest of the work-up Requesting Provider: FANTA BRODERICK Date/Time of Note DATE: 01/22/19 TIME: 18:41 24 HR Interval Summary Constitutional: no complaints Detailed Summary Respiratory: no complaints Cardiovascular: no complaints Gastrointestinal: nausea Exam/Review of Systems Exam Vitals Vital Signs Date Temp Pulse Resp B/P (MAP) Pulse Ox O2 O2 Flow FiO2 Time Delivery Rate 01/22/19 98.1 75 18 117/64 97 Room Air 14:15 (81) Intake and Output 01/21/19 01/21/19 01/22/19 1515:00 23:00 07:00 IntakeIntake Total 1270 ml 1330 ml 1000 ml OutputOutput Total 600 ml 700 ml 400 ml BalanceBalance 670 ml 630 ml 600 ml Constitutional: alert, oriented Respiratory: clear to auscultation, normal air movement Cardiovascular: regular rate and rhythm, nl pulses Gastrointestinal: soft, nl liver, spleen, non-tender Results Result Diagram: 01/22/19 0555 01/21/19 0657 Results 24hrs Laboratory Tests Test 01/21/19 19:53 01/21/19 21:22 01/22/19 02:13 01/22/19 05:55 Bedside Glucose 77 94 112 White Blood Count 10.5 Red Blood Count 4.20 L Hemoglobin 13.0 L Hematocrit 37.1 L Mean Corpuscular 88.3 Volume Mean Corpuscular 31.0 Hemoglobin Mean Corpuscular 35.0 Hemoglobin Concent Red Cell 11.8 Distribution Width Platelet Count 198 # Mean Platelet Volume 10.3 Immature 0.400 Granulocytes % Neutrophils % 76.3 Lymphocytes % 13.4 L Monocytes % 9.5 Eosinophils % 0.1 Basophils % 0.3 Nucleated Red Blood 0.0 Cells % Immature 0.040 H Granulocytes # Neutrophils # 8.0 H Lymphocytes # 1.4 Monocytes # 1.0 H Eosinophils # 0.0 Basophils # 0.0 Nucleated Red Blood 0.0 Cells # Triglycerides Level 138 Cholesterol Level 169 # LDL Cholesterol, 100 Calculated HDL Cholesterol 41 Cholesterol/HDL 4.1 Ratio Test 01/22/19 08:17 01/22/19 10:15 01/22/19 12:53 01/22/19 14:40 Bedside Glucose 113 102 84 173 Test 01/22/19 17:29 Bedside Glucose 190 Medications Medication Current Medications Sodium Chloride 1,000 ml @ 0 mls/hr Q0M IV Last administered on 01/21/19at 08:45; Admin Dose 50 MLS/HR; Start 01/20/19 at 19:00 Dextrose (D50w Syringe) 50 ml Q15M PRN IV .DECREASED GLUCOSE; Start 01/20/19 at 19:00 Dextrose (D50w Syringe) 25 ml Q15M PRN IV .DECREASED GLUCOSE; Start 01/20/19 at 19:00 Ondansetron HCl (Zofran Inj) 4 mg Q6H PRN IV NAUSEA AND/OR VOMITING Last administered on 01/21/19at 21:21; Admin Dose 4 MG; Start 01/20/19 at 20:00 Albuterol (Proventil 0.083% (Neb)) 2.5 mg Q2H RESP THERAPY PRN NEB SHORTNESS OF BREATH; Start 01/20/19 at 20:00 Ipratropium [place] (Atrovent 0.02% (Neb)) 0.5 mg Q2H RESP THERAPY PRN NEB SHORTNESS OF BREATH; Start 01/20/19 at 20:00 Acetaminophen (Tylenol Liquid) 650 mg Q6H PRN PO PAIN LEVEL 1-3 OR FEVER; Start 01/20/19 at 20:00 Acetaminophen/ Hydrocodone Bitart ([place] (5/325)) 1 tab Q6H PRN PO PAIN LEVEL 4-6; Start 01/20/19 at 20:00 Morphine Sulfate (morphine) 2 mg Q4H PRN IV PAIN LEVEL 7-10; Start 01/20/19 at 20:00 Docusate Sodium (Colace) 100 mg Q12H PRN PO CONSTIPATION; Start 01/20/19 at 20:00 Bisacodyl (Dulcolax) 5 mg DAILY PRN PO CONSTIPATION; Start 01/20/19 at 20:00 Heparin Sodium (Porcine) (Heparin (5000 Units/1ml)) 5,000 unit Q8 SC Last administered on 01/22/19at 14:36; Admin Dose 5,000 UNIT; Start 01/20/19 at 22:00 Diagnostic Test (Pha) (Accu-Chek) 1 ea 02 XX Last administered on 01/22/19at 02:17; Admin Dose 1 EA; Start 01/22/19 at 02:00 Insulin Aspart (Novolog Insulin Pen) 4 unit WITH MEALS SC Last administered on 01/22/19 17:35; Admin Dose 4 UNIT; Start 01/21/19 at 11:30 Insulin Aspart (Novolog Insulin Pen) NOVOLOG *MILD* ALGORITHM WITH MEALS BEDTIME SC Last administered on 01/22/19 17:39; Admin Dose 2 UNIT; Start 01/21/19 at 11:30 Sodium Chloride 1,000 ml @ 150 mls/hr Q6H40M IV Last administered on 01/22/19 14:31; Admin Dose 150 MLS/HR; Start 01/21/19 at 13:00 Miscellaneous Information (*Order Clarification Bulletin) MEDICATION REQUIRES CLARIFICATI... Q8H XX ; Start 01/21/19 at 11:00 Insulin Human NPH (Humulin N) 15 unit BID@08,20 SC Last administered on 01/22/19 08:40; Admin Dose 15 UNIT; Start 01/21/19 at 20:00 Diagnostic Test (Pha) (Accu-Chek) 1 ea AC MEALS AND BEDTIME XX Last administered on 01/22/19 17:31; Admin Dose 1 EA; Start 01/21/19 at 17:05 Diagnostic Test (Pha) (Accu-Chek) 1 ea 2 HOURS AFTER MEALS XX Last administered on 01/22/19 14:38; Admin Dose 1 EA; Start 01/21/19 at 14:30 Pioglitazone HCl (Actos) 30 mg DAILY PO Last administered on 01/22/19at 10:17; Admin Dose 30 MG; Start 01/22/19 at 09:00 Famotidine (Pepcid) 20 mg DAILY PO ; Start 01/23/19 at 09:00 DUANE LEWIS MD Jan 22, 2019 18:42
[2019-01-22 20:00] VITALS: BP 123/73; PULSE 68; RESP 18
[2019-01-23] MEDS: ACCU-CHEK XX SCH ×6 (01:32→17:10)
[2019-01-23 02:00] VITALS: BP 128/70; PULSE 73; RESP 18
[2019-01-23] MEDS: [UNRECOGNIZED DRUG - REMARK] XX SCH ×3 (02:01→19:00)
[2019-01-23] MEDS: SOD CHLORIDE 0.45% 1,000 ML IV SCH ×3 (05:00→13:18)
[2019-01-23] MEDS: HEPARIN 5,000 UNIT/1 ML VIAL SC SCH ×2 (05:02→14:33)
--- NOTE | 2019-01-23 07:41 | RADRPT ---
Vent Rate: 75 bpm RR Interval: 796 msec [place] Interval: 141 msec QRS Duration: 73 msec QT Interval: 477 msec QTC Interval: 535 msec P-R-T [place]: 16 - 45 - -88 degrees Sinus rhythm...normal P axis, V-rate 50- [address]/T abnormalities, diffuse leads Consider anterior ischemia Prolonged QT interval...QTc >500mS Electronically Signed By: Te Taylor
[2019-01-23] MEDS: NPH, HUMAN INSULIN ISOPHANE 3ML VIAL SC SCH ×2 (08:00→11:02)
[2019-01-23] MEDS: INSULIN ASPART [NOVOLOG] 3 ML PEN SC SCH ×5 (08:00→17:09)
[2019-01-23 08:01] VITALS: BP 134/78; PULSE 60; RESP 18
[2019-01-23] MEDS ORDERED: FAMOTIDINE 20 MG TAB PO SCH (09:00)
[2019-01-23] MEDS: PIOGLITAZONE 15 MG TAB PO SCH (10:59)
--- NOTE | 2019-01-23 12:17 | PN ---
Date/Time of Note Date/Time of Note DATE: 01/23/19 TIME: 12:14 Assessment/Plan VTE Prophylaxis Risk score (from Ns)>0 risk: 2 SCD applied (from Ns): No SCD contraindicated: other Lines/Catheters IV C[facility]ter Type (from [facility]): Peripheral IV Urinary Cath still in place: No Assessment/Plan Hospital Course Assessment and plan 1. DKA. - Appears largely resolved at present. . - Continue on insulin regimen. - Grid Casting Machine Operator Helper is following. It was reported that patient did not have his insulin for 4 days prior to admission. - Medical compliance advised. - Patient was seen by special education paraeducator. Continue to monitor. 2. Diabetes. - A1c of 10. Continue insulin regimen. Monitor glucose trend. 3. Acute kidney injury. - Likely from dehydration. - Improved at present. Encourage oral fluid intake 4. Dysphagia. - Seen by speech therapy - likely from GERD - improved Disposition and plan. HIDA scan was ordered per dusting and brushing machine operator. Follow-up with recommendations. Anticipate discharge within the next 24 hours if medically stable and cleared by consults Discussed POC with Dr. White Result Diagram: 01/23/19 0503 01/21/19 0657 Results 24hrs Laboratory Tests Test 01/22/19 12:53 01/22/19 14:40 01/22/19 17:29 01/22/19 21:42 Bedside Glucose 84 173 190 157 Test 01/23/19 05:03 01/23/19 08:16 01/23/19 10:57 White Blood Count 6.0 # Red Blood Count 4.08 L Hemoglobin 12.4 L Hematocrit 35.5 L Mean Corpuscular 87.0 Volume Mean Corpuscular 30.4 Hemoglobin Mean Corpuscular 34.9 Hemoglobin Concent Red Cell 11.2 L Distribution Width Platelet Count 157 # Mean Platelet Volume 10.0 Immature 0.300 Granulocytes % Neutrophils % 56.8 Lymphocytes % 30.8 Monocytes % 10.4 Eosinophils % 1.2 Basophils % 0.5 Nucleated Red Blood 0.0 Cells % Immature 0.020 Granulocytes # Neutrophils # 3.4 Lymphocytes # 1.9 Monocytes # 0.6 Eosinophils # 0.1 Basophils # 0.0 Nucleated Red Blood 0.0 Cells # Bedside Glucose 106 154 Subjective 24 Hr Interval Summary Free Text/Dictation reports only minimal abd pain at this time. seen eating lunch and tolerating well Exam/Review of Systems Exam Vitals Vital Signs Date Temp Pulse Resp B/P (MAP) Pulse Ox O2 O2 Flow FiO2 Time Delivery Rate 01/23/19 98.8 60 18 134/78 98 08:01 (96) 01/23/19 Room Air 02:00 Intake and Output 01/22/19 01/22/19 01/23/19 1515:00 23:00 07:00 IntakeIntake Total 1600 ml 1360 ml 1000 ml BalanceBalance 1600 ml 1360 ml 1000 ml Exam Constitutional: alert, oriented Psych: nl mood/affect Head: normocephalic Neck: supple, non-tender Respiratory: clear to auscultation Cardiovascular: regular rate and rhythm Gastrointestinal: soft, non-tender Neurological: OFFAL SEPARATOR II-XII intact, nl mental status, nl speech Skin: nl turgor Results Results 24hrs Laboratory Tests Test 01/22/19 12:53 01/22/19 14:40 01/22/19 17:29 01/22/19 21:42 Bedside Glucose 84 173 190 157 Test 01/23/19 05:03 01/23/19 08:16 01/23/19 10:57 White Blood Count 6.0 # Red Blood Count 4.08 L Hemoglobin 12.4 L Hematocrit 35.5 L Mean Corpuscular 87.0 Volume Mean Corpuscular 30.4 Hemoglobin Mean Corpuscular 34.9 Hemoglobin Concent Red Cell 11.2 L Distribution Width Platelet Count 157 # Mean Platelet Volume 10.0 Immature 0.300 Granulocytes % Neutrophils % 56.8 Lymphocytes % 30.8 Monocytes % 10.4 Eosinophils % 1.2 Basophils % 0.5 Nucleated Red Blood 0.0 Cells % Immature 0.020 Granulocytes # Neutrophils # 3.4 Lymphocytes # 1.9 Monocytes # 0.6 Eosinophils # 0.1 Basophils # 0.0 Nucleated Red Blood 0.0 Cells # Bedside Glucose 106 154 Medications Medication Current Medications Sodium Chloride 1,000 ml @ 0 mls/hr Q0M IV Last administered on 01/21/19at 08:45; Admin Dose 50 MLS/HR; Start 01/20/19 at 19:00 Dextrose (D50w Syringe) 50 ml Q15M PRN IV .DECREASED GLUCOSE; Start 01/20/19 at 19:00 Dextrose (D50w Syringe) 25 ml Q15M PRN IV .DECREASED GLUCOSE; Start 01/20/19 at 19:00 Ondansetron HCl (Zofran Inj) 4 mg Q6H PRN IV NAUSEA AND/OR VOMITING Last administered on 01/21/19at 21:21; Admin Dose 4 MG; Start 01/20/19 at 20:00 Albuterol (Proventil 0.083% (Neb)) 2.5 mg Q2H RESP THERAPY PRN NEB SHORTNESS OF BREATH; Start 01/20/19 at 20:00 Ipratropium [place] (Atrovent 0.02% (Neb)) 0.5 mg Q2H RESP THERAPY PRN NEB SHORTNESS OF BREATH; Start 01/20/19 at 20:00 Acetaminophen (Tylenol Liquid) 650 mg Q6H PRN PO PAIN LEVEL 1-3 OR FEVER; Start 01/20/19 at 20:00 Acetaminophen/ Hydrocodone Bitart ([place] (5/325)) 1 tab Q6H PRN PO PAIN LEVEL 4-6; Start 01/20/19 at 20:00 Morphine Sulfate (morphine) 2 mg Q4H PRN IV PAIN LEVEL 7-10; Start 01/20/19 at 20:00 Docusate Sodium (Colace) 100 mg Q12H PRN PO CONSTIPATION; Start 01/20/19 at 20:00 Bisacodyl (Dulcolax) 5 mg DAILY PRN PO CONSTIPATION; Start 01/20/19 at 20:00 Heparin Sodium (Porcine) (Heparin (5000 Units/1ml)) 5,000 unit Q8 SC Last administered on 01/23/19at 05:02; Admin Dose 5,000 UNIT; Start 01/20/19 at 22:00 Diagnostic Test (Pha) (Accu-Chek) 1 ea 02 XX Last administered on 01/22/19at 02:17; Admin Dose 1 EA; Start 01/22/19 at 02:00 Insulin Aspart (Novolog Insulin Pen) 4 unit WITH MEALS SC Last administered on 01/23/19at 11:03; Admin Dose 4 UNIT; Start 01/21/19 at 11:30 Insulin Aspart (Novolog Insulin Pen) NOVOLOG *MILD* ALGORITHM WITH MEALS BEDTIME SC Last administered on 01/23/19at 11:05; Admin Dose 1 UNIT; Start 01/21/19 at 11:30 Sodium Chloride 1,000 ml @ 150 mls/hr Q6H40M IV Last administered on 01/23/19 05:00; Admin Dose 150 MLS/HR; Start 01/21/19 at 13:00 Miscellaneous Information (*Order Clarification Bulletin) MEDICATION REQUIRES CLARIFICATI... Q8H XX ; Start 01/21/19 at 11:00 Insulin Human NPH (Humulin N) 15 unit BID@08,20 SC Last administered on 01/23/19 11:02; Admin Dose 15 UNIT; Start 01/21/19 at 20:00 Diagnostic Test (Pha) (Accu-Chek) 1 ea AC MEALS AND BEDTIME XX Last administered on 01/22/19at 17:31; Admin Dose 1 EA; Start 01/21/19 at 17:05 Diagnostic Test (Pha) (Accu-Chek) 1 ea 2 HOURS AFTER MEALS XX Last administered on 01/22/19at 14:38; Admin Dose 1 EA; Start 01/21/19 at 14:30 Pioglitazone HCl (Actos) 30 mg DAILY PO Last administered on 01/23/19at 10:59; Admin Dose 30 MG; Start 01/22/19 at 09:00 Famotidine (Pepcid) 20 mg DAILY PO Last administered on 01/23/19at 10:59; Admin Dose 20 MG; Start 01/23/19 at 09:00 SOLEDAD LIU NP Jan 23, 2019 12:17
[2019-01-23 15:22] VITALS: BP 128/74; PULSE 75; RESP 17
--- NOTE | 2019-01-23 16:25 | CONS ---
Assessment/Plan Assessment/Plan Problems: (1) DKA (diabetic ketoacidoses) Status: Acute Comment: Resolved and blood sugars under much better control. Would actively consider discharge using the pioglitazone as an adjunct to his insulin as opposed to the metformin. If need be the metformin can be used but would recommend at low dosage Qualifiers: Diabetes mellitus type: type 2 Diabetes mellitus complication detail: without coma Qualified Codes: E11.10 - Type 2 diabetes mellitus with ketoacidosis without coma (2) Hyperlipidemia Status: Chronic Comment: Stable on treatment Qualifiers: Hyperlipidemia type: pure hypercholesterolemia Qualified Codes: E78.00 - Pure hypercholesterolemia, unspecified (3) Hypertension Status: Chronic Comment: Adequate control Qualifiers: Hypertension type: essential hypertension Qualified Codes: I10 - Essential (primary) hypertension (4) Gallbladder sludge Status: Chronic Comment: Noted. He has a negative HIDA scan CC: SOLEDAD LIU RECREATION FACILITY ATTENDANT ; Consultation Date/Type/Reason Admit Date/Time Jan 20, 2019 at 19:19 Initial Consult Date 01/21/19 Type of Consult Endocrine Reason for Consultation Diabetes mellitus with DKA caused by unknown stress or Requesting Provider: FANTA BRODERICK Date/Time of Note DATE: 01/23/19 TIME: 16:23 24 HR Interval Summary Free Text/Dictation No complaints Constitutional: no complaints Detailed Summary Endocrine: no complaints Exam/Review of Systems Exam Vitals Vital Signs Date Temp Pulse Resp B/P (MAP) Pulse Ox O2 O2 Flow FiO2 Time Delivery Rate 01/23/19 98.5 75 17 128/74 96 15:22 (92) 01/23/19 Room Air 02:00 Intake and Output 01/22/19 01/22/19 01/23/19 1515:00 23:00 07:00 IntakeIntake Total 1600 ml 1360 ml 1000 ml BalanceBalance 1600 ml 1360 ml 1000 ml Constitutional: alert, oriented Neck: supple, non-tender Respiratory: clear to auscultation, normal air movement Cardiovascular: regular rate and rhythm, nl pulses Results Result Diagram: 01/23/19 0503 01/21/19 0657 Results 24hrs Laboratory Tests Test 01/22/19 17:29 01/22/19 21:42 01/23/19 05:03 01/23/19 08:16 Bedside Glucose 190 157 106 White Blood Count 6.0 # Red Blood Count 4.08 L Hemoglobin 12.4 L Hematocrit 35.5 L Mean Corpuscular 87.0 Volume Mean Corpuscular 30.4 Hemoglobin Mean Corpuscular 34.9 Hemoglobin Concent Red Cell 11.2 L Distribution Width Platelet Count 157 # Mean Platelet Volume 10.0 Immature 0.300 Granulocytes % Neutrophils % 56.8 Lymphocytes % 30.8 Monocytes % 10.4 Eosinophils % 1.2 Basophils % 0.5 Nucleated Red Blood 0.0 Cells % Immature 0.020 Granulocytes # Neutrophils # 3.4 Lymphocytes # 1.9 Monocytes # 0.6 Eosinophils # 0.1 Basophils # 0.0 Nucleated Red Blood 0.0 Cells # Test 01/23/19 10:57 01/23/19 14:29 Bedside Glucose 154 285 H Medications Medication Current Medications Sodium Chloride 1,000 ml @ 0 mls/hr Q0M IV Last administered on 01/21/19at 08:45; Admin Dose 50 MLS/HR; Start 01/20/19 at 19:00 Dextrose (D50w Syringe) 50 ml Q15M PRN IV .DECREASED GLUCOSE; Start 01/20/19 at 19:00 Dextrose (D50w Syringe) 25 ml Q15M PRN IV .DECREASED GLUCOSE; Start 01/20/19 at 19:00 Ondansetron HCl (Zofran Inj) 4 mg Q6H PRN IV NAUSEA AND/OR VOMITING Last administered on 01/21/19at 21:21; Admin Dose 4 MG; Start 01/20/19 at 20:00 Albuterol (Proventil 0.083% (Neb)) 2.5 mg Q2H RESP THERAPY PRN NEB SHORTNESS OF BREATH; Start 01/20/19 at 20:00 Ipratropium [place] (Atrovent 0.02% (Neb)) 0.5 mg Q2H RESP THERAPY PRN NEB SHORTNESS OF BREATH; Start 01/20/19 at 20:00 Acetaminophen (Tylenol Liquid) 650 mg Q6H PRN PO PAIN LEVEL 1-3 OR FEVER; Start 01/20/19 at 20:00 Acetaminophen/ Hydrocodone Bitart ([place] (5/325)) 1 tab Q6H PRN PO PAIN LEVEL 4-6; Start 01/20/19 at 20:00 Morphine Sulfate (morphine) 2 mg Q4H PRN IV PAIN LEVEL 7-10; Start 01/20/19 at 20:00 Docusate Sodium (Colace) 100 mg Q12H PRN PO CONSTIPATION; Start 01/20/19 at 20:00 Bisacodyl (Dulcolax) 5 mg DAILY PRN PO CONSTIPATION; Start 01/20/19 at 20:00 Heparin Sodium (Porcine) (Heparin (5000 Units/1ml)) 5,000 unit Q8 SC Last administered on 01/23/19 14:33; Admin Dose 5,000 UNIT; Start 01/20/19 at 22:00 Diagnostic Test (Pha) (Accu-Chek) 1 ea 02 XX Last administered on 01/22/19 02:17; Admin Dose 1 EA; Start 01/22/19 at 02:00 Insulin Aspart (Novolog Insulin Pen) 4 unit WITH MEALS SC Last administered on 01/23/19 11:03; Admin Dose 4 UNIT; Start 01/21/19 at 11:30 Insulin Aspart (Novolog Insulin Pen) NOVOLOG *MILD* ALGORITHM WITH MEALS BEDTIME SC Last administered on 01/23/19 11:05; Admin Dose 1 UNIT; Start 01/21/19 at 11:30 Sodium Chloride 1,000 ml @ 150 mls/hr Q6H40M IV Last administered on 01/23/19 13:18; Admin Dose 150 MLS/HR; Start 01/21/19 at 13:00 Miscellaneous Information (*Order Clarification Bulletin) MEDICATION REQUIRES CLARIFICATI... Q8H XX ; Start 01/21/19 at 11:00 Insulin Human NPH (Humulin N) 15 unit BID@08,20 SC Last administered on 01/23/19 at 11:02; Admin Dose 15 UNIT; Start 01/21/19 at 20:00 Diagnostic Test (Pha) (Accu-Chek) 1 ea AC MEALS AND BEDTIME XX Last administered on 01/22/19 17:31; Admin Dose 1 EA; Start 01/21/19 at 17:05 Diagnostic Test (Pha) (Accu-Chek) 1 ea 2 HOURS AFTER MEALS XX Last administered on 01/22/19at 14:38; Admin Dose 1 EA; Start 01/21/19 at 14:30 Pioglitazone HCl (Actos) 30 mg DAILY PO Last administered on 01/23/19at 10:59; Admin Dose 30 MG; Start 01/22/19 at 09:00 Famotidine (Pepcid) 20 mg DAILY PO Last administered on 01/23/19at 10:59; Admin Dose 20 MG; Start 01/23/19 at 09:00 DUANE LEWIS MD Jan 23, 2019 16:25
[2019-01-23] MEDS ORDERED: NPH,100I5 SQ (17:04)
[2019-01-23] MEDS ORDERED: FAMO20TA18 PO (17:04)
[2019-01-23] MEDS ORDERED: INSU100I12 SQ (17:04)
[2019-01-23] MEDS ORDERED: PIOG15TA12 PO (17:04)
--- NOTE | 2019-01-23 17:07 | PDOCDIS ---
Discharge Instructions DIAGNOSIS Discharge Diagnosis 1. DKA. 2. Diabetes. - A1c of 10. 3. Dysphagia. 4. acute kidney injury CONDITION [id number] Patient Condition: [id number] Stable HOME CARE INSTRUCTIONS: [id number] Special Diet: [id number] carbohydrate controlled FOLLOW UP/APPOINTMENTS Follow-up Plan 1. Call and make an appointment with Dr. Anil Vega for further management of your diabetes Office Address [address] [place] [address], [address] [place] [id number] Office SOLEDAD LIU NP Jan 23, 2019 17:07
--- NOTE | 2019-01-23 17:11 | DS ---
Date/Time of Note Date/Time of Note DATE: 01/23/19 TIME: 17:08 Discharge Summary Admission/Discharge Info Admit Date/Time Jan 20, 2019 at 19:19 Discharge Date/Time Discharge Diagnosis 1. DKA. 2. Diabetes. - A1c of 10. 3. Dysphagia. 4. acute kidney injury Patient Condition: Stable Hospital Course This is a 68-year-old male who reported that his blood sugar has been high for the past 4 days he had associated vomiting x2 days. He also reports he been feeling weak. He states that he ran out of his insulin 4 days ago as well prior to admission because he was unable to get refills from his doctor who is out of town. As such patient went to the hospital for further evaluation. Patient was found to have Diabetic ketoacidosis. He was placed on IV hydration as well as insulin regimen. He was seen by technical delivery manager as well. He was transitioned to subcutaneous insulin as well as oral antidiabetic regimen. His glucose levels did stabilize. Of note his A1c was 10. During his course of stay he did improve. He was noted with some acute renal insufficiency likely from dehydration which did improve with IV hydration. He also reported some dysphagia and was seen by speech therapist who suggested that symptoms likely s econdary to GERD and he was optimized with ant for compliance of his medications. Acid medication. He was advised the plan of care was discussed with the patient and patient verbalizes understanding. On the day of discharge patient was in stable condition Discussed POC with Dr. White [facility] Active Scripts Famotidine* (Famotidine*) 20 Mg Tablet, 20 MG PO BID, #60 TAB Prov:SOLEDAD LIU NP 01/23/19 NPH, Human Insulin Isophane (Humulin N Kwikpen) 100 Unit/1 Ml Insuln.pen, 16 UNIT SQ BID, #2 EA Prov:SOLEDAD LIU SKIN PEELING MACHINE OPERATOR 01/23/19 Pioglitazone Hcl* (Actos*) 15 Mg Tablet, 30 MG PO DAILY, #30 TAB Prov:SOLEDAD LIU NP 01/23/19 Insulin Lispro (Humalog Kwikpen U-100) 100 Unit/1 Ml Insuln.pen, 5 UNIT SQ AC MEALS, #1 EA Prov:SOLEDAD LIU NP 01/23/19 Reported Medications Gabapentin* (Gabapentin*) 100 Mg Capsule, 100 MG PO DAILY, #90 CAP 01/20/19 Lisinopril* (Lisinopril*) 10 Mg Tablet, 10 MG PO DAILY, #30 TAB 01/20/19 Discontinued Reported Medications Glipizide* (Glipizide*) 5 Mg Tablet, 5 MG PO AC BREAKFAST DINNER, TAB 01/20/19 Metformin Hcl* (Metformin Hcl*) 1,000 Mg Tablet, 1000 MG PO WITH BREAKFAST DINNE, #60 TAB 01/20/19 Insulin Human Nph (Novolin-N) 100 Units/Ml Susp, 15 UNITS SQ BID 01/20/19 Follow-up Plan 1. Call and make an appointment with Dr. Anil Vega for further management of your diabetes Office Address [address] [place] [address], [address] [place] [address] Office Primary Care Provider Not On Staff Doctor Time spent on discharge: > 30 minutes Pending Labs Laboratory Tests Test 01/22/19 17:29 01/22/19 21:42 01/23/19 05:03 01/23/19 08:16 Bedside 190 157 106 Glucose mg/dL (70-220) mg/dL (70-220) mg/dL (70-220) White Blood 6.0 Count 10^3/ul (4.8-1 0.8) Red Blood 4.08 Count 10^6/ul (4.70- 6.10) Hemoglobin 12.4 g/dl (14.0-18. 0) Hematocrit 35.5 % (42.0-52.0) Mean 87.0 Corpuscular fl (82.0-101.0 Volume ) Mean 30.4 Corpuscular pg (29.0-33.0) Hemoglobin Mean 34.9 Corpuscular g/dl (32.0-37. Hemoglobin Conc 0) ent Red Cell 11.2 Distribution % (11.5-14.5) Width Platelet Count 157 10^3/UL (140-4 15) Mean Platelet 10.0 Volume fl (7.4-10.4) Immature 0.300 Granulocytes % % (0.001-0.429 ) Neutrophils % 56.8 % (39.0-77.0) Lymphocytes % 30.8 % (15.0-51.0) Monocytes % 10.4 % (0.0-11.0) Eosinophils % 1.2 % (0.0-7.0) Basophils % 0.5 % (0.0-2.0) Nucleated Red 0.0 Blood Cells % /100WBC (0.0-0 .0) Immature 0.020 Granulocytes # 10^3/ul (0.0-0 .031) Neutrophils # 3.4 10^3/ul (1.6-7 .5) Lymphocytes # 1.9 10^3/ul (0.8-2 .9) Monocytes # 0.6 10^3/ul (0.3-0 .9) Eosinophils # 0.1 10^3/ul (0.0-0 .5) Basophils # 0.0 10^3/ul (0.0-0 .1) Nucleated Red 0.0 Blood Cells # 10^3/ul (0.0-0 .0) Test 01/23/19 10:57 01/23/19 14:29 01/23/19 17:04 Bedside 154 285 218 Glucose mg/dL (70-220) mg/dL (70-220) mg/dL (70-220) SOLEDAD LIU NP Jan 23, 2019 17:11
[2019-01-23] MEDS ORDERED: INSULIN ASPART [NOVOLOG] 3 ML PEN SC SCH (18:00)
[2019-01-23] MEDS ORDERED: NPH, HUMAN INSULIN ISOPHANE 3ML VIAL SC SCH (20:00)
== END 2019-01-23 20:20 | disposition home or self-care (01) | DRG 638 ==
LOC: E/R 15:28 → ICU 19:19 → 2NE 01-21 22:15
PROVIDERS: ADMIT Family Medicine; ATTEND Hospitalist
DX: E11.10 Type 2 diabetes mellitus with ketoacidosis without coma (principal); N17.9 Acute kidney failure, unspecified; E78.5 Hyperlipidemia, unspecified; I10 Essential (primary) hypertension; K82.8 Other specified diseases of gallbladder; E86.0 Dehydration; R13.10 Dysphagia, unspecified; Z91.14 Patient's other noncompliance with medication regimen
CPT/HCPCS: 36415; 71045; 76700; 78226; 80048; 80061; 81003; 82306; 82803; 82962; 83036; 83690; 83735; 84100; 84443; 84681; 85025; 86704; 86709; 86803; 87081; 87340; 92610; 93005; 96374; A9537; J0696; J1644; J1815; J2405; J3480; J7030; J7120